=== PATIENT | female | born 1960 | race Caucasian/White ===

== ENCOUNTER 2023-01-13 19:54 | Inpatient (IN) ==
[2023-01-13] MEDS ORDERED: cefTRIAXone SODIUM 2,000 MG/70 ML BAG IV STA (20:17)
[2023-01-13] MEDS ORDERED: methylPREDNISolone 125 MG/2 ML VIAL IV STA (20:17)
[2023-01-13] MEDS ORDERED: SODIUM CHLORIDE 0.9% 1000ML 500 ML IV ONE (20:17)
[2023-01-13] MEDS ORDERED: ALBUT/IPRATROP 3MG/0.5MG NEB 3 ML VIAL NEB ONE (20:17)
[2023-01-13 20:25] LABS: Basophils # (auto) 0.08 K/uL (0-0.2); Basophils % (auto) 0.7 %; Eosinophils # (auto) 1.19 K/uL (0-0.50); Eosinophils % (auto) 11.2 %; Hematocrit (blood only) 47.9 % (37.0-47.0); Hemoglobin 15.9 g/dl (12.0-16.0); Immature Granulocytes # (auto) 0.04 K/uL (0.01-0.20); Immature Granulocytes % (auto) 0.4 %; Lymphocytes # (auto) 2.22 K/uL (1.2-3.4); Lymphocytes % (auto) 20.8 %; Mean Corpuscular Hemoglobin 31.6 pg (25.0-34.0); Mean Corpuscular Hgb Conc 33.2 g/dL (32.0-36.0); Mean Corpuscular Volume 95.2 fL (80.0-100.0); Mean Platelet Volume 10.5 fL (9.4-12.4); Monocytes % (auto) 11.2 %; Neutrophils # (auto) 5.94 K/uL (1.40-6.50); Neutrophils % (auto) 55.7 %; Platelet Count 115 K/uL (130-400); Red Blood Count 5.03 M/uL (4.20-5.40); White Blood Count 10.67 K/ul (4.8-10.8)
--- NOTE | 2023-01-13 20:26 | Emergency Department Note ---
Impression & Plan Respiratory distress, SOB (shortness of breath), Wheezing, Pneumonia, Elevated troponin ED Provider Note NAME: FLORA GONZALEZ AGE: 62 SEX: F : 1960 ARRIVES VIA: Walk-In INFORMANT: [Patient] ED PROVIDER(S): [Suraj Marlow MD] CHIEF COMPLAINT: Short of breath HISTORY OF PRESENT ILLNESS: The patient is a 62-year-old female who presents with increasing shortness of breath for maybe 1 week. Things have markedly worsened in the last few days. She has had to stop and catch her breath with minimal activity. She has had some cough that is productive, she has had some sweats and chills and may be a fever. She has tried other peoples inhalers and it helps a bit. She does not have any current diagnosis of lung disease, she has a history of smoking tobacco though. The patient has had no sick contacts. She states that in addition to the lung issue, she has had diarrhea for the last 24 hours, the diarrhea has not been bloody. No vomiting. The patient was in our ER this past October for difficulty breathing. She was diagnosed with a bronchitis at that time and was discharged on medication for symptoms. She improved. PMHx/PSHx: See Below SOCIAL HISTORY: See Below. PHYSICAL EXAM: GENERAL: Patient is in moderate respiratory distress. HEENT: No acute trauma, normocephalic atraumatic, mucous membranes moist, no nasal congestion. NECK: No stridor, no adenopathy, no meningismus, trachea is midline. LUNGS: Wheezing bilaterally with diminished breath sounds bilaterally, no crackl es. There is moderate respiratory distress and an increased respiratory rate. HEART: Heart tones are hard to auscultate because of the overriding lung sounds. Rhythm does seem regular. I cannot really assess for murmurs. ABDOMEN: Soft, nontender, bowel sounds positive, no peritonitis. EXTREMITIES: No cyanosis or edema, full range of motion of all the joints without pain or difficulty, no signs for acute trauma. NEUROLOGIC: Oriented x 3, no acute motor or sensory deficits, no focal weakness. SKIN: No rash, no jaundice, no diaphoresis. DIFFERENTIAL DIAGNOSIS: Bronchitis or pneumonia, viral illness, CHF, COPD or asthma, anemia, dysrhythmia, NC, PE, among others. EMERGENCY DEPARTMENT COURSE/PROCEDURES: Prior/Outside records reviewed: Recent ED note. ECG per my interpretation: Indication was shortness of breath. The ECG shows a normal sinus rhythm with a rate of 89. There is some significant baseline artifact. There is no obvious ST elevation. There is a possible old anterior infarct. No PVCs. The QTc is 401. Continuous Cardiac Monitoring per my interpretation: An order was placed for continuous cardiac monitoring. The monitor shows a rate of 95 with normal sinus rhythm. Critical Care Note: I have personally spent 47 minutes of critical care time in the direct management of this patient. This includes bedside care, interpretation of diagnostic studies, and testing, discussion with consultants, patient, and family members, and other required patient management activities. This 47 minutes is in excess of all separately billable procedures. MEDICAL DECISION MAKING: There is no leukocytosis or concerning anemia. Platelet count was slightly low at 115. No coagulopathy. There was an elevation to the creatinine at 1.73, this is consistent with some renal insufficiency/mild acute kidney injury. No electrolyte abnormality in need of emergent correction. Lactic acid level was not elevated making sepsis less likely. Alk phos was elevated, the remaining liver enzymes were unremarkable. ECG showed a normal sinus rhythm, no ST elevation. Cardiac enzyme testing x1 was slightly elevated. This troponin elevation may be from mismatch secondary to her hypoxia versus potentially some cardiac injury. Respiratory bio fire was completely negative. Chest film per my review does show some patchy bilateral infiltrates, worse on the left. No pneumothorax or CHF. On exam, the patient was in some moderate respiratory distress, she was not wheezing. She appeared short of breath. She was hypoxic upon arrival. The patient was given a 1 hour DuoNeb, IV ceftriaxone, IV Solu-Medrol and a 500 cc saline bolus. She feels markedly improved and is now breathing much easier. The patient is in need of a hospital stay. She will require further work-up and care. I did speak with the patient at length, I spoke with case management, the on-call hospitalist was consulted. DISPOSITION: Patient's presentation and findings warrant a hospital stay. Past Med/Surg History Medical History No known health problems Social History Smoking Status: Current every day smoker Tobacco Type: Cigarettes Preferred Language: Swiss Feels Safe at Home: Yes Allergies Allergies Allergy/AdvReac Type Severity Reaction Status Date / Time No Known Allergies Allergy Mild OTHER Unverified 07/12/19 09:42 Home Meds Home Medications Medication Instructions Recorded Confirmed No Known Home Medications 01/13/23 01/13/23 Results & Data (ED) Vital Signs Vital Signs - 24 hr 01/13/23 19:55 01/13/23 19:57 01/13/23 20:10 Temperature 36.3 C L Temperature Source Temporal Artery Scan Pulse Rate 95 H Respiratory Rate 26 H Respiratory Effort / Characteristics Short of Breath Tripoding Non-Labored Respiratory Depth Normal Respiratory Pattern Regular Blood Pressure 170/96 H Blood Pressure Mean 120 Pulse Oximetry 85 L 85 L Oxygen Delivery Method Room Air Room Air Nasal Cannula Room Air Oxygen Flow Rate Sepsis Recent Fever Within 48 Hours No Sepsis New/Unexplained Change in Mental Status No Sepsis Action Taken by Nursing No Action Required Oxygen Flow Rate - Titration 4 Pulse Oximetry Post Tiitration 93 01/13/23 19:57 01/13/23 19:57 01/13/23 19:58 Temperature Temperature Source Pulse Rate 95 H Respiratory Rate 24 Respiratory Effort / Characteristics Respiratory Depth Respiratory Pattern Blood Pressure Blood Pressure Mean Pulse Oximetry 93 93 92 Oxygen Delivery Method Nasal Cannula Nasal Cannula Nasal Cannula Oxygen Flow Rate 2 2 2 Sepsis Recent Fever Within 48 Hours Sepsis New/Unexplained Change in Mental Status Sepsis Action Taken by Nursing Oxygen Flow Rate - Titration Pulse Oximetry Post Tiitration 01/13/23 19:58 Temperature Temperature Source Pulse Rate 95 H Respiratory Rate 22 Respiratory Effort / Characteristics Respiratory Depth Respiratory Pattern Blood Pressure Blood Pressure Mean Pulse Oximetry 92 Oxygen Delivery Method Nasal Cannula Oxygen Flow Rate 2 Sepsis Recent Fever Within 48 Hours Sepsis New/Unexplained Change in Mental Status Sepsis Action Taken by Nursing Oxygen Flow Rate - Titration Pulse Oximetry Post Tiitration Home Medications Current Medication List: was personally reviewed by me Laboratory Data Attestation: I reviewed the patient's lab results. 01/13/23 20:03 01/13/23 20:03 Lab Results 01/13/23 01/13/23 01/13/23 Range/Units 20:03 20:03 20:03 WBC 10.67 (4.8-10.8) K/ul RBC 5.03 (4.20-5.40) M/uL Hgb 15.9 (12.0-16.0) g/dl Hct 47.9 H (37.0-47.0) % MCV 95.2 (80.0-100.0) fL MCH 31.6 (25.0-34.0) pg MCHC 33.2 (32.0-36.0) g/dL RDW Std Deviation 49.0 H (36.4-46.3) fL RDW Coeff of Ruthann 14.0 (11.5-14.5) % Plt Count 115 L (130-400) K/uL MPV 10.5 (9.4-12.4) fL Immature Gran % (Auto) 0.4 % Neut % (Auto) 55.7 % Lymph % (Auto) 20.8 % [place] % (Auto) 11.2 % Eos % (Auto) 11.2 % Baso % (Auto) 0.7 % Neut # (Auto) 5.94 (1.40-6.50) K/uL Lymph # (Auto) 2.22 (1.2-3.4) K/uL [place] # (Auto) 1.20 H (0.11-0.59) K/uL Eos # (Auto) 1.19 H (0-0.50) K/uL Baso # (Auto) 0.08 (0-0.2) K/uL Immature Gran # (Auto) 0.04 (0.01-0.20) K/uL PT 10.6 (9.0-12.0) Seconds INR 1.0 (0.9-1.1) APTT 26.3 (21.0-31.0) Seconds PTT Ratio 0.9 Sodium 139 (136-145) mmol/L Potassium 4.3 (3.5-5.1) mmol/L Chloride 104 (98-107) mmol/L Carbon Dioxide 27 (21-32) mmol/L Anion Gap 8 (3-11) BUN 34 H (6-23) mg/dl Creatinine 1.73 H (0.6-1.2) mg/dl Est Cr Clr Drug Dosing Not Reportable Est GFR ( Amer) 36.6 ml/min Est GFR (Non-Af Amer) 31.5 ml/min BUN/Creatinine Ratio 19.7 (10-20) Glucose 120 H (70-99(Fasting)) mg/dl Lactate (0.4-2.0) mmol/L Calcium 9.7 (8.6-10.3) mg/dl Magnesium 2.2 (1.7-2.4) mg/dl Total Bilirubin 0.4 (0.2-1.0) mg/dl AST 13 (13-39) U/L ALT 19 (7-52) U/L Alkaline Phosphatase 163 H (34-104) U/L Troponin I High Sens 18.6 H (0-14) pg/ml Total Protein 8.1 (6.0-8.3) gm/dl Albumin 4.3 (3.4-5.0) gm/dl Globulin 3.8 (2.5-4.0) gm/dl Albumin/Globulin Ratio 1.1 (0.9-2) Adenovirus (PCR) (NotDetected) B. pertussis DNA (PCR) (NotDetected) B.parapertussis DNA PCR (NotDetected) C. pneumoniae DNA (PCR) (NotDetected) Coronavirus OC43 (PCR) (NotDetected) Coronavirus HKU1 (PCR) (NotDetected) Coronavirus 229E (PCR) (NotDetected) SARS-CoV-2 (PCR) (NotDetected) Coronavirus NL63 (PCR) (NotDetected) Human Metapneumovir PCR (NotDetected) Influenza Type A (PCR) (NotDetected) Influenza Type B (PCR) (NotDetected) M. pneumoniae (PCR) (NotDetected) Parainfluenza 1 (PCR) (NotDetected) Parainfluenza 2 (PCR) (NotDetected) Parainfluenza 3 (PCR) (NotDetected) Parainfluenza 4 (PCR) (NotDetected) RSV (PCR) (NotDetected) Entero/Rhino (PCR) (NotDetected) 01/13/23 01/13/23 Range/Units 20:21 Unknown WBC (4.8-10.8) K/ul RBC (4.20-5.40) M/uL Hgb (12.0-16.0) g/dl Hct (37.0-47.0) % MCV (80.0-100.0) fL MCH (25.0-34.0) pg MCHC (32.0-36.0) g/dL RDW Std Deviation (36.4-46.3) fL RDW Coeff of Ruthann (11.5-14.5) % Plt Count (130-400) K/uL MPV (9.4-12.4) fL Immature Gran % (Auto) % Neut % (Auto) % Lymph % (Auto) % [place] % (Auto) % Eos % (Auto) % Baso % (Auto) % Neut # (Auto) (1.40-6.50) K/uL Lymph # (Auto) (1.2-3.4) K/uL [place] # (Auto) (0.11-0.59) K/uL Eos # (Auto) (0-0.50) K/uL Baso # (Auto) (0-0.2) K/uL Immature Gran # (Auto) (0.01-0.20) K/uL PT (9.0-12.0) Seconds INR (0.9-1.1) APTT (21.0-31.0) Seconds PTT Ratio Sodium (136-145) mmol/L Potassium (3.5-5.1) mmol/L Chloride (98-107) mmol/L Carbon Dioxide (21-32) mmol/L Anion Gap (3-11) BUN (6-23) mg/dl Creatinine (0.6-1.2) mg/dl Est Cr Clr Drug Dosing Est GFR ( Amer) ml/min Est GFR (Non-Af Amer) ml/min BUN/Creatinine Ratio (10-20) Glucose (70-99(Fasting)) mg/dl Lactate 1.1 (0.4-2.0) mmol/L Calcium (8.6-10.3) mg/dl Magnesium (1.7-2.4) mg/dl Total Bilirubin (0.2-1.0) mg/dl AST (13-39) U/L ALT (7-52) U/L Alkaline Phosphatase (34-104) U/L Troponin I High Sens (0-14) pg/ml Total Protein (6.0-8.3) gm/dl Albumin (3.4-5.0) gm/dl Globulin (2.5-4.0) gm/dl Albumin/Globulin Ratio (0.9-2) Adenovirus (PCR) Not Detected (NotDetected) B. pertussis DNA (PCR) Not Detected (NotDetected) B.parapertussis DNA PCR Not Detected (NotDetected) C. pneumoniae DNA (PCR) Not Detected (NotDetected) Coronavirus OC43 (PCR) Not Detected (NotDetected) Coronavirus HKU1 (PCR) Not Detected (NotDetected) Coronavirus 229E (PCR) Not Detected (NotDetected) SARS-CoV-2 (PCR) Not Detected (NotDetected) Coronavirus NL63 (PCR) Not Detected (NotDetected) Human Metapneumovir PCR Not Detected (NotDetected) Influenza Type A (PCR) Not Detected (NotDetected) Influenza Type B (PCR) Not Detected (NotDetected) M. pneumoniae (PCR) Not Detected (NotDetected) Parainfluenza 1 (PCR) Not Detected (NotDetected) Parainfluenza 2 (PCR) Not Detected (NotDetected) Parainfluenza 3 (PCR) Not Detected (NotDetected) Parainfluenza 4 (PCR) Not Detected (NotDetected) RSV (PCR) Not Detected (NotDetected) Entero/Rhino (PCR) Not Detected (NotDetected) Administered Medications Discontinued Medications Albuterol (Albut/Ipratrop 3mg/0.5mg Neb 3 Ml Vial) 12 ml NEB ONE ONE; Protocol Stop: 01/13/23 20:18 Last Admin: 01/13/23 20:28 Dose: 12 ml Documented By: LOTTIE Sodium Chloride (Nss 1000ml) 500 mls @ 999 mls/hr IV .Q31M ONE Stop: 01/13/23 20:47 Last Infusion: 01/13/23 21:13 Dose: 999 mls/hr Documented By: Admin: 01/13/23 20:40 Dose: 999 mls/hr Documented By: KRISTINA Ceftriaxone Sodium (Rocephin) 2,000 mg in 70 mls @ 140 mls/hr IV NOW STA Stop: 01/13/23 20:46 Last Infusion: 01/13/23 21:13 Dose: 140 mls/hr Documented By: Admin: 01/13/23 20:40 Dose: 140 mls/hr Documented By: KRISTINA Methylprednisolone (Methylprednisolone 125 Mg/2 Ml Vial) 125 mg IV NOW STA Stop: 01/13/23 20:18 Last Admin: 01/13/23 20:30 Dose: 125 mg Documented By: HJW Imaging Data My Impression: Chest x-ray: Per my review there is some patchy infiltrate to the lower lungs, especially on the left. No pneumothorax or CHF. Discharge Plan Visit Data Chief Complaint: Shortness of Breath/Dyspnea Stated Complaint: SOB, DIAREAHA, COUGH, CHILLS ED Provider: Suraj Marlow Discharge Problem: Respiratory distress, SOB (shortness of breath), Wheezing, Pneumonia, Elevated troponin Patient Disposition: Admitted As Inpatient Condition: Fair Forms Stand Alone [facility]: [facility] Prescriptions Prescriptions: No Action No Known Home Medications Referrals Referrals: PCP,NO [Primary Care Provider] -
[2023-01-13 20:38] LABS: Alanine Aminotransferase 19 U/L (7-52); Albumin Globulin Ratio 1.1 (0.9-2); Albumin Level 4.3 gm/dl (3.4-5.0); Alkaline Phosphatase 163 U/L (34-104); Anion Gap 8 (3-11); Aspartate Aminotransferase 13 U/L (13-39); BUN Creatinine Ratio 19.7 (10-20); Bilirubin,Total 0.4 mg/dl (0.2-1.0); Blood Urea Nitrogen 34 mg/dl (6-23); Calcium 9.7 mg/dl (8.6-10.3); Carbon Dioxide 27 mmol/L (21-32); Chloride 104 mmol/L (98-107); Est GFR (African American) 36.6 ml/min; Est GFR (Non-African American) 31.5 ml/min; Globulin 3.8 gm/dl (2.5-4.0); Glucose 120 mg/dl (70-99(Fasting)); Potassium 4.3 mmol/L (3.5-5.1); Sodium 139 mmol/L (136-145); Total Protein 8.1 gm/dl (6.0-8.3)
[2023-01-13 20:46] LABS: Troponin I High Sensitivity 18.6 pg/ml (0-14)
[2023-01-13 20:53] LABS: Partial Thromboplastin Ratio 0.9; Partial Thromboplastin Time 26.3 Seconds (21.0-31.0); Prothrombin Time 10.6 Seconds (9.0-12.0)
[2023-01-13 20:57] LABS: Magnesium 2.2 mg/dl (1.7-2.4)
[2023-01-13 21:44] LABS: Adenovirus PCR Not Detected (NotDetected); Bordetella parapertussis PCR Not Detected (NotDetected); Bordetella pertussis PCR Not Detected (NotDetected); Chlamydia pneumoniae PCR Not Detected (NotDetected); Coronavirus 229E PCR Not Detected (NotDetected); Coronavirus CoV-2 (COVID19)PCR Not Detected (NotDetected); Coronavirus HKU1 PCR Not Detected (NotDetected); Coronavirus NL63 PCR Not Detected (NotDetected); Coronavirus OC43PCR Not Detected (NotDetected); Human Metapneumovirus PCR Not Detected (NotDetected); Influenza A PCR Not Detected (NotDetected); Influenza B PCR Not Detected (NotDetected); Mycoplasma pneumoniae PCR Not Detected (NotDetected); Parainfluenza Virus 1 PCR Not Detected (NotDetected); Parainfluenza Virus 2 PCR Not Detected (NotDetected); Parainfluenza Virus 3 PCR Not Detected (NotDetected); Parainfluenza Virus 4 PCR Not Detected (NotDetected); Respiratory Syncytial VirusPCR Not Detected (NotDetected); Rhinovirus/Enterovirus PCR Not Detected (NotDetected)
--- NOTE | 2023-01-13 22:16 | History & Physical Report ---
Date of Service January 13, 2023 Assessment & Plan (1) SOB (shortness of breath): Plan: 62-year-old female with no significant past medical history comes because of shortness of breath and cough and found to be hypoxic in the ER. History of smoking Mostly COPD exacerbation Seems was in respiratory distress in the ER when she came in Was saturating low 80s on room air Currently on oxygen she is saturating okay Resp biofire negative Received Solu-Medrol nebs and Rocephin in the ER We will continue with IV Solu-Medrol, nebs [id number] and as needed IV Rocephin and doxycycline Will monitor response Needs to follow outpatient for PFTs Tobacco abuse States did not smoke for last 1 month Encourage smoking cessation Mild elevation of troponin Moderate demand ischemia We will follow serial exams. Diarrhea gentle fluids follow stool studies David cr 1.7 baseline 1.2 to 1.4? getting fluids f/u labs in am. DVT prophylaxis Lovenox Disposition med/telemetry Full code History of Present Illness Chief Complaint: Shortness of breath Primary Care Provider: NO PCP 62-year-old female with no significant past medical history comes because of shortness of breath and cough and found to be hypoxic in the ER. Patient states since last 1 week she is getting short of breath and coughing a lot bringing whitish phlegm. Sometimes coughing does not stop. Last 2 days got worse. Sweating a lot.. In the ER she was saturating in low 80s on room air. She states she did not smoke for last 1 month but prior to that smoked haldf pack a day for many years. The second week of October she was in the ER due to shortness of breath and cough and was treated for bronchitis with steroid and azithromycin and inhalers. Denies any chest pain. Last couple of days she is having a lot of diarrhea many episodes. Before bowel movement she has abdominal discomfort. Currently no abdominal pain. Normal bladder movements. No swelling the legs. Because of coughing she is having a lot of headaches. Poor appetite. Has some runny nose. No sore throat. Past medical history none as per patient Past surgical history none as per patient Social history smokes a pack a day for many years but states did not smoke for last 1 month. No alcohol use Family history grandfather had a CHF. Mother had ovarian cancer Allergies Allergy/AdvReac Type Severity Reaction Status Date / Time No Known Allergies Allergy Mild OTHER Unverified 07/12/19 09:42 Home Medications Medication Instructions Recorded Confirmed Type No Known Home Medications 01/13/23 01/13/23 History Past Med/Surg History Medical History No known health problems Social History Smoking Status: Current every day smoker Tobacco Type: Cigarettes Preferred Language: Welsh Feels Safe at Home: Yes Review of Systems Review of Systems: All systems reviewed & are unremarkable except as noted in HPI & below Physical Exam Physical Exam: General- Not in distress Head- atraumatic Eyes- PERRL. ENT- oropharynx clear Neck- supple, no JVD,. Lungs- clear to auscultation B/l wheezing and rhonchi Heart- regular rhythm; no murmur, no gallop. Abdomen- normal bowel sounds, soft, nontender, no distension Extremities- no pretibial edema, no erythema seen. Neuro- alert, oriented x 3; PERRL, EOMI; no facial palsy; no dysarthria; moves extremities Skin- warm & dry Results & Data Results & Data Vital Signs (Past 12 Hours) Vital Signs Temp Pulse Resp BP Pulse Ox O2 Del Method O2 Flow Rate 01/13/23 19:58 95 H 22 92 Nasal Cannula 2 01/13/23 19:58 92 Nasal Cannula 2 01/13/23 19:57 95 H 24 93 Nasal Cannula 2 01/13/23 19:57 93 Nasal Cannula 2 01/13/23 20:10 Room Air 01/13/23 19:57 85 L Room Air, Nasal Cannula 01/13/23 19:55 36.3 C L 95 H 26 H 170/96 H 85 L Room Air Diagnostic Findings Laboratory Results WBC 10.67 K/ul (4.8-10.8) 01/13/23 20:03 RBC 5.03 M/uL (4.20-5.40) 01/13/23 20:03 Hgb 15.9 g/dl (12.0-16.0) 01/13/23 20:03 Hct 47.9 % (37.0-47.0) H 01/13/23 20:03 MCV 95.2 fL (80.0-100.0) 01/13/23 20:03 MCH 31.6 pg (25.0-34.0) 01/13/23 20:03 MCHC 33.2 g/dL (32.0-36.0) 01/13/23 20:03 RDW Std Deviation 49.0 fL (36.4-46.3) H 01/13/23 20:03 RDW Coeff of Ruthann 14.0 % (11.5-14.5) 01/13/23 20:03 Plt Count 115 K/uL (130-400) L 01/13/23 20:03 MPV 10.5 fL (9.4-12.4) 01/13/23 20:03 Immature Gran % (Auto) 0.4 % 01/13/23 20:03 Neut % (Auto) 55.7 % 01/13/23 20:03 Lymph % (Auto) 20.8 % 01/13/23 20:03 [place] % (Auto) 11.2 % 01/13/23 20:03 Eos % (Auto) 11.2 % 01/13/23 20:03 Baso % (Auto) 0.7 % 01/13/23 20:03 Neut # (Auto) 5.94 K/uL (1.40-6.50) 01/13/23 20:03 Lymph # (Auto) 2.22 K/uL (1.2-3.4) 01/13/23 20:03 [place] # (Auto) 1.20 K/uL (0.11-0.59) H 01/13/23 20:03 Eos # (Auto) 1.19 K/uL (0-0.50) H 01/13/23 20:03 Baso # (Auto) 0.08 K/uL (0-0.2) 01/13/23 20:03 Immature Gran # (Auto) 0.04 K/uL (0.01-0.20) 01/13/23 20:03 PT 10.6 Seconds (9.0-12.0) 01/13/23 20:03 INR 1.0 (0.9-1.1) 01/13/23 20:03 APTT 26.3 Seconds (21.0-31.0) 01/13/23 20:03 PTT Ratio 0.9 01/13/23 20:03 Sodium 139 mmol/L (136-145) 01/13/23 20:03 Potassium 4.3 mmol/L (3.5-5.1) 01/13/23 20:03 Chloride 104 mmol/L (98-107) 01/13/23 20:03 Carbon Dioxide 27 mmol/L (21-32) 01/13/23 20:03 Anion Gap 8 (3-11) 01/13/23 20:03 BUN 34 mg/dl (6-23) H 01/13/23 20:03 Creatinine 1.73 mg/dl (0.6-1.2) H 01/13/23 20:03 Est Cr Clr Drug Dosing Not Reportable 01/13/23 20:03 Est GFR ( Amer) 36.6 ml/min 01/13/23 20:03 Est GFR (Non-Af Amer) 31.5 ml/min 01/13/23 20:03 BUN/Creatinine Ratio 19.7 (10-20) 01/13/23 20:03 Glucose 120 mg/dl (70-99(Fasting)) H 01/13/23 20:03 Lactate 1.1 mmol/L (0.4-2.0) 01/13/23 20:21 Calcium 9.7 mg/dl (8.6-10.3) 01/13/23 20:03 Magnesium 2.2 mg/dl (1.7-2.4) 01/13/23 20:03 Total Bilirubin 0.4 mg/dl (0.2-1.0) 01/13/23 20:03 AST 13 U/L (13-39) 01/13/23 20:03 ALT 19 U/L (7-52) 01/13/23 20:03 Alkaline Phosphatase 163 U/L (34-104) H 01/13/23 20:03 Troponin I High Sens 18.6 pg/ml (0-14) H 01/13/23 20:03 Total Protein 8.1 gm/dl (6.0-8.3) 01/13/23 20:03 Albumin 4.3 gm/dl (3.4-5.0) 01/13/23 20:03 Globulin 3.8 gm/dl (2.5-4.0) 01/13/23 20:03 Albumin/Globulin Ratio 1.1 (0.9-2) 01/13/23 20:03 Adenovirus (PCR) Not Detected (NotDetected) 01/13/23 Unknown B. pertussis DNA (PCR) Not Detected (NotDetected) 01/13/23 Unknown B.parapertussis DNA PCR Not Detected (NotDetected) 01/13/23 Unknown C. pneumoniae DNA (PCR) Not Detected (NotDetected) 01/13/23 Unknown Coronavirus OC43 (PCR) Not Detected (NotDetected) 01/13/23 Unknown Coronavirus HKU1 (PCR) Not Detected (NotDetected) 01/13/23 Unknown Coronavirus 229E (PCR) Not Detected (NotDetected) 01/13/23 Unknown SARS-CoV-2 (PCR) Not Detected (NotDetected) 01/13/23 Unknown Coronavirus NL63 (PCR) Not Detected (NotDetected) 01/13/23 Unknown Human Metapneumovir PCR Not Detected (NotDetected) 01/13/23 Unknown Influenza Type A (PCR) Not Detected (NotDetected) 01/13/23 Unknown Influenza Type B (PCR) Not Detected (NotDetected) 01/13/23 Unknown M. pneumoniae (PCR) Not Detected (NotDetected) 01/13/23 Unknown Parainfluenza 1 (PCR) Not Detected (NotDetected) 01/13/23 Unknown Parainfluenza 2 (PCR) Not Detected (NotDetected) 01/13/23 Unknown Parainfluenza 3 (PCR) Not Detected (NotDetected) 01/13/23 Unknown Parainfluenza 4 (PCR) Not Detected (NotDetected) 01/13/23 Unknown RSV (PCR) Not Detected (NotDetected) 01/13/23 Unknown Entero/Rhino (PCR) Not Detected (NotDetected) 01/13/23 Unknown Code Status & VTE Plan VTE Prophylaxis Plan VTE Prophylaxis will be ordered: Yes
[2023-01-14] MEDS ORDERED: ALBUT/IPRATROP 3MG/0.5MG NEB 3 ML VIAL NEB PRN (00:01)
[2023-01-14] MEDS ORDERED: NITROGLYCERIN SL 0.4 MG/TAB TAB SL PRN (00:01)
[2023-01-14] MEDS ORDERED: DOXYCYCLINE HYCLATE 100 MG CAP PO STA (00:06)
[2023-01-14] MEDS: SODIUM CHLORIDE 0.9% 1000ML 1,000 ML IV SCH ×2 (00:39→13:32)
[2023-01-14] MEDS: ENOXAPARIN INJ 40 MG/0.4 ML SYR SQ SCH (05:12)
[2023-01-14 05:42] LABS: Hematocrit (blood only) 42.3 % (37.0-47.0); Hemoglobin 13.8 g/dl (12.0-16.0); Mean Corpuscular Hgb Conc 32.6 g/dL (32.0-36.0); Mean Corpuscular Volume 95.1 fL (80.0-100.0); Mean Platelet Volume 10.7 fL (9.4-12.4); Platelet Count 111 K/uL (130-400); RDW Coefficient of Variation 13.7 % (11.5-14.5); RDW Standard Deviation 47.8 fL (36.4-46.3); Red Blood Count 4.45 M/uL (4.20-5.40); White Blood Count 7.99 K/ul (4.8-10.8)
[2023-01-14 05:44] LABS: BUN Creatinine Ratio 19.9 (10-20); Calcium 8.8 mg/dl (8.6-10.3); Creatinine Clr Calc Pharmacy 39.7 ml/min; Est GFR (African American) 46.8 ml/min; Est GFR (Non-African American) 40.4 ml/min; Magnesium 1.8 mg/dl (1.7-2.4); Potassium 4.8 mmol/L (3.5-5.1)
[2023-01-14 05:47] LABS: Basophils # (auto) 0.02 K/uL (0-0.2); Basophils % (auto) 0.3 %; Immature Granulocytes # (auto) 0.04 K/uL (0.01-0.20); Immature Granulocytes % (auto) 0.5 %; Lymphocytes # (auto) 0.56 K/uL (1.2-3.4); Monocytes # (auto) 0.11 K/uL (0.11-0.59); Monocytes % (auto) 1.4 %; Neutrophils # (auto) 7.26 K/uL (1.40-6.50); Neutrophils % (auto) 90.8 %
[2023-01-14 05:52] LABS: Troponin I High Sensitivity 13.7 pg/ml (0-14)
[2023-01-14] MEDS: ALBUT/IPRATROP 3MG/0.5MG NEB 3 ML VIAL NEB SCH ×4 (06:59→19:41)
--- NOTE | 2023-01-14 08:15 | XRay Report ---
XR chest 1V portable HISTORY: Chest pain, nonspecific COMPARISON: Chest 11/04/2022. FINDINGS: No pneumothorax. No pleural effusions. The heart is normal in size. Mild interstitial thick ening persists. Otherwise, no new focal lung consolidations to suggest a pneumonia. No evidence for p ulmonary edema. IMPRESSION: No significant change compared to the prior study. No acute process. ACT 112: Negative or not required by law. Electronically signed by: Pernell Dia M.D. 01/14/2023 8:13 AM
[2023-01-14] MEDS: DOXYCYCLINE HYCLATE 100 MG CAP PO SCH ×2 (08:53→20:24)
[2023-01-14] MEDS: methylPREDNISolone 40 MG in SYRINGE 0 ML IV SCH ×3 (09:18→20:24)
[2023-01-14] MEDS: ACETAMINOPHEN 325 MG TAB PO PRN (11:48)
--- NOTE | 2023-01-14 16:48 | Hospitalist Progress Note ---
Date of Service January 14, 2023 Assessment & Plan (1) SOB (shortness of breath): Plan: 62-year-old female with no significant past medical history comes because of shortness of breath and cough and found to be hypoxic in the ER. History of smoking COPD exacerbation with acute hypoxic respiratory failure Seems was in respiratory distress in the ER when she came in Was saturating low 80s on room air Currently on oxygen she is saturating okay Resp biofire negative Received Solu-Medrol nebs and Rocephin in the ER We will continue with IV Solu-Medrol, nebs [id number] and as needed IV Rocephin and doxycycline Has been feeling better since admission and still has a cough and shortness of breath We will continue current management Tobacco abuse States did not smoke for last 1 month Encourage smoking cessation No signs of withdrawal Mild elevation of troponin Moderate demand ischemia Serial troponins and negative for any ACS Diarrhea gentle fluids follow stool studies David cr 1.7 baseline 1.2 to 1.4? getting fluids f/u labs in am. DVT prophylaxis Lovenox Disposition med/telemetry Full code Admission and Anticipated Discharge Date Admission Date: January 13, 2023 Subjective 01/14/2023 The patient was seen and examined in medical telemetry unit She has been complaining of increasing cough with minimal phlegm and shortness of breath No fever and no chills Feeling a little bit better since admission Review of Systems Review of Systems: All systems reviewed and are unremarkable except as noted below Respiratory: Mild to moderate shortness of breath at rest with cough Physical Exam Physical Exam: Sitting on bed with shortness of breath and cough Constitutional: + ill appearing and average body habitus Eyes: PERRL, conjunctivae normal, anicteric sclerae ENMT: external ear and nose normal, oropharynx normal Neck: trachea midline, no thyromegaly Respiratory: + respiratory distress (Mild to moderate respiratory distress) Auscultation: + diminished lung sounds, + crackles (Coarse crackles bilaterally) and + wheezes Cardiovascular: Rate/Rhythm: regular rate and regular rhythm; not tachycardic Heart Sounds: normal S1 and normal S2; no murmur Extremities: no edema Gastrointestinal (Abdomen): Inspection/Auscultation: normal bowel sounds; abdomen not distended Percussion/Palpation: abdomen soft; abdomen nontender Musculoskeletal: No acute arthritis involving any joint Neurologic: normal touch/pain/proprioception and moves all extremities; no focal motor deficits Psychiatric: A+Ox3, euthymic affect Lymphatic: no cervical or axillary lymphadenopathy Results & Data Results & Data Vital Signs (Past 12 Hours) Vital Signs Temp Pulse Pulse Pulse Resp BP Pulse Ox 01/14/23 14:16 90 01/14/23 14:10 86 01/14/23 14:34 88 18 93 01/14/23 14:07 01/14/23 14:07 36.7 C 94 H 20 143/81 H 92 01/14/23 10:54 82 16 97 01/14/23 10:01 81 18 123/76 97 01/14/23 09:11 77 18 131/78 95 01/14/23 07:13 88 20 122/73 88 L 01/14/23 06:59 81 16 97 01/14/23 06:00 75 20 133/69 95 O2 Del Method O2 Flow Rate 01/14/23 14:16 01/14/23 14:10 01/14/23 14:34 Nasal Cannula 2 01/14/23 14:07 Nasal Cannula 2 01/14/23 14:07 Nasal Cannula 2 01/14/23 10:54 Nasal Cannula 2 01/14/23 10:01 Room Air 01/14/23 09:11 Room Air 01/14/23 07:13 Room Air 01/14/23 06:59 Nasal Cannula 2 01/14/23 06:00 Nasal Cannula 2 Laboratory Results Home Medications Medication Instructions Recorded Confirmed No Known Home Medications 01/13/23 01/13/23 Medications Administered Current Inpatient Medications Acetaminophen (Acetaminophen 325 Mg Tab) 650 mg PO Q4H PRN PRN Reason: Pain or Fever Stop: 02/13/23 00:00 Last Admin: 01/14/23 11:48 Dose: 650 mg Albuterol (Albut/Ipratrop 3mg/0.5mg Neb 3 Ml Vial) 3 ml NEB Q4H PRN; Protocol PRN Reason: Shortness Of Breath Or Wheezing Stop: 02/13/23 00:00 Albuterol (Albut/Ipratrop 3mg/0.5mg Neb 3 Ml Vial) 3 ml NEB QIDR [facility]; Protocol Stop: 02/13/23 06:59 Last Admin: 01/14/23 14:32 Dose: 3 ml Doxycycline Hyclate (Doxycycline Hyclate 100 Mg Cap) 100 mg PO BID [facility] Stop: 01/21/23 08:59 Last Admin: 01/14/23 08:53 Dose: 100 mg Enoxaparin Sodium (Enoxaparin Inj 40 Mg/0.4 Ml Syr) 40 mg SQ Q24H [facility] Stop: 02/13/23 05:59 Last Admin: 01/14/23 05:12 Dose: Not Given Sodium Chloride (Nss 1000ml) 1,000 mls @ 80 mls/hr IV .[id number] [facility] Stop: 01/15/23 01:00 Last Infusion: 01/14/23 14:29 Dose: 80 mls/hr Ceftriaxone Sodium 2,000 mg/ (Dextrose) 70 mls @ 100 mls/hr IV Q24H [facility]; Protocol Stop: 01/21/23 19:59 Methylprednisolone 40 mg/ (Syringe) 0.64 mls @ 1.5 mls/min IV TID [facility] Stop: 02/13/23 08:59 Last Admin: 01/14/23 14:41 Dose: 1.5 mls/min Nitroglycerin (Nitroglycerin Sl 0.4 Mg/Tab Tab) 0.4 mg SL Q5M PRN PRN Reason: Chest Pain Stop: 02/13/23 00:00
[2023-01-14] MEDS: cefTRIAXone SODIUM 2,000 MG in DEXTROSE 5% 50 ML IV SCH (20:29)
[2023-01-15] MEDS: ENOXAPARIN INJ 40 MG/0.4 ML SYR SQ SCH (06:14)
[2023-01-15] MEDS: ALBUT/IPRATROP 3MG/0.5MG NEB 3 ML VIAL NEB SCH ×4 (07:20→19:43)
[2023-01-15 07:57] LABS: Basophils # (auto) 0.04 K/uL (0-0.2); Basophils % (auto) 0.3 %; Immature Granulocytes # (auto) 0.49 K/uL (0.01-0.20); Immature Granulocytes % (auto) 3.3 %; Lymphocytes % (auto) 12.1 %; Mean Corpuscular Hgb Conc 32.5 g/dL (32.0-36.0); Mean Corpuscular Volume 95.5 fL (80.0-100.0); Mean Platelet Volume 10.3 fL (9.4-12.4); Monocytes # (auto) 0.84 K/uL (0.11-0.59); Monocytes % (auto) 5.7 %; Neutrophils # (auto) 11.69 K/uL (1.40-6.50); Neutrophils % (auto) 78.6 %; Platelet Count 143 K/uL (130-400); RDW Standard Deviation 48.8 fL (36.4-46.3); Red Blood Count 4.19 M/uL (4.20-5.40); White Blood Count 14.86 K/ul (4.8-10.8)
[2023-01-15] MEDS: methylPREDNISolone 40 MG in SYRINGE 0 ML IV SCH ×3 (08:06→20:08)
[2023-01-15 08:17] LABS: BUN Creatinine Ratio 20.3 (10-20); Calcium 9.1 mg/dl (8.6-10.3); Creatinine Clr Calc Pharmacy 39.2 ml/min; Est GFR (Non-African American) 39.7 ml/min; Potassium 4.8 mmol/L (3.5-5.1)
--- NOTE | 2023-01-15 09:21 | Electrocardiogram Report ---
Test Reason : Blood Pressure : / mmHG Vent. Rate : 089 BPM Atrial Rate : 089 BPM P-R Int : 128 ms QRS Dur : 070 ms QT Int : 330 ms P-R-T Axes : 079 060 070 degrees QTc Int : 401 ms Normal sinus rhythm Possible Left atrial enlargement Anteroseptal infarct (cited on or before 13-JAN-2023) Abnormal ECG When compared with ECG of 04-NOV-2022 20:02, No significant change was found Confirmed by Librado Lopez ([id number]) on 01/15/2023 9:20:40 AM Referred By: REFERRED SELF Confirmed By:Librado Lopez
[2023-01-15] MEDS: DOXYCYCLINE HYCLATE 100 MG CAP PO SCH ×2 (10:12→20:08)
[2023-01-15] MEDS: ACETAMINOPHEN 325 MG TAB PO PRN (14:44)
--- NOTE | 2023-01-15 16:44 | Hospitalist Progress Note ---
Date of Service January 15, 2023 Assessment & Plan (1) SOB (shortness of breath): Plan: 62-year-old female with no significant past medical history comes because of shortness of breath and cough and found to be hypoxic in the ER. History of smoking COPD exacerbation with acute hypoxic respiratory failure Seems was in respiratory distress in the ER when she came in Was saturating low 80s on room air Currently on oxygen she is saturating okay Resp biofire negative Received Solu-Medrol nebs and Rocephin in the ER We will continue with IV Solu-Medrol, nebs [id number] and as needed IV Rocephin and doxycycline Has been feeling better since admission and still has a cough and shortness of breath Clinically much better with decreasing cough, shortness of breath and wheezing We will continue current antibiotic and nebulized bronchodilator Likely discharge tomorrow if further improvement Tobacco abuse States did not smoke for last 1 month Encourage smoking cessation No signs of withdrawal Mild elevation of troponin Moderate demand ischemia Serial troponins and negative for any ACS Diarrhea gentle fluids follow stool studies David cr 1.7 baseline 1.2 to 1.4? getting fluids f/u labs in am.-Creatinine slightly worse at 1.43 Advised to drink more fluid We will monitor in a.m. DVT prophylaxis Lovenox Disposition med/telemetry Full code Admission and Anticipated Discharge Date Admission Date: January 13, 2023 Subjective 01/14/2023 The patient was seen and examined in medical telemetry unit She has been complaining of increasing cough with minimal phlegm and shortness of breath No fever and no chills Feeling a little bit better since admission 01/15/2023 The patient was seen and examined in the medical telemetry unit She has been feeling much better today Decreasing shortness of breath, cough and wheezing Denies any fever and or chills Review of Systems Review of Systems: All systems reviewed and are unremarkable except as noted below Respiratory: Mild to moderate shortness of breath at rest with cough Physical Exam Physical Exam: Sitting on bed with shortness of breath and cough Constitutional: + ill appearing and average body habitus Eyes: PERRL, conjunctivae normal, anicteric sclerae ENMT: external ear and nose normal, oropharynx normal Neck: trachea midline, no thyromegaly Respiratory: + respiratory distress (Mild to moderate respiratory distress) Auscultation: + diminished lung sounds, + crackles (Coarse crackles bilaterally) and + wheezes Cardiovascular: Rate/Rhythm: regular rate and regular rhythm; not tachycardic Heart Sounds: normal S1 and normal S2; no murmur Extremities: no edema Gastrointestinal (Abdomen): Inspection/Auscultation: normal bowel sounds; abdomen not distended Percussion/Palpation: abdomen soft; abdomen nontender Musculoskeletal: No acute arthritis involving any joint Neurologic: normal touch/pain/proprioception and moves all extremities; no focal motor deficits Psychiatric: A+Ox3, euthymic affect Lymphatic: no cervical or axillary lymphadenopathy Results & Data Results & Data Vital Signs (Past 12 Hours) Vital Signs Temp Pulse Pulse Resp BP Pulse Ox O2 Del Method 01/15/23 15:00 36.6 C 71 18 164/91 H 93 Room Air 01/15/23 12:00 77 01/15/23 14:55 81 20 96 Nasal Cannula 01/15/23 13:34 94 Nasal Cannula 01/15/23 11:12 36.5 C 75 20 175/83 H 97 Nasal Cannula 01/15/23 10:47 83 18 94 Nasal Cannula 01/15/23 07:28 36.5 C 60 20 168/83 H 96 Nasal Cannula 01/15/23 07:30 Nasal Cannula 01/15/23 07:22 78 20 97 Nasal Cannula 01/15/23 06:00 65 O2 Flow Rate 01/15/23 15:00 01/15/23 12:00 01/15/23 14:55 2 01/15/23 13:34 2 01/15/23 11:12 2 01/15/23 10:47 2 01/15/23 07:28 2 01/15/23 07:30 2 01/15/23 07:22 2 01/15/23 06:00 Laboratory Results Short CBC 01/15/23 Range/Units 07:32 WBC 14.86 H (4.8-10.8) K/ul Hgb 13.0 (12.0-16.0) g/dl Hct 40.0 (37.0-47.0) % Plt Count 143 (130-400) K/uL BMP 01/15/23 07:32 Sodium 140 Potassium 4.8 Chloride 108 H Carbon Dioxide 26 BUN 29 H Creatinine 1.43 H Glucose 110 H Calcium 9.1 Medications Administered Current Inpatient Medications Acetaminophen (Acetaminophen 325 Mg Tab) 650 mg PO Q4H PRN PRN Reason: Pain or Fever Stop: 02/13/23 00:00 Last Admin: 01/15/23 14:44 Dose: 650 mg Albuterol (Albut/Ipratrop 3mg/0.5mg Neb 3 Ml Vial) 3 ml NEB Q4H PRN; Protocol PRN Reason: Shortness Of Breath Or Wheezing Stop: 02/13/23 00:00 Albuterol (Albut/Ipratrop 3mg/0.5mg Neb 3 Ml Vial) 3 ml NEB QIDR [facility]; Protocol Stop: 02/13/23 06:59 Last Admin: 01/15/23 14:55 Dose: 3 ml Doxycycline Hyclate (Doxycycline Hyclate 100 Mg Cap) 100 mg PO BID [facility] Stop: 01/21/23 08:59 Last Admin: 01/15/23 10:12 Dose: 100 mg Enoxaparin Sodium (Enoxaparin Inj 40 Mg/0.4 Ml Syr) 40 mg SQ Q24H [facility] Stop: 02/13/23 05:59 Last Admin: 01/15/23 06:14 Dose: Not Given Ceftriaxone Sodium 2,000 mg/ (Dextrose) 70 mls @ 100 mls/hr IV Q24H [facility]; Protocol Stop: 01/21/23 19:59 Last Infusion: 01/14/23 21:35 Dose: Infused Methylprednisolone 40 mg/ (Syringe) 0.64 mls @ 1.5 mls/min IV TID [facility] Stop: 02/13/23 08:59 Last Admin: 01/15/23 13:26 Dose: 1.5 mls/min Nitroglycerin (Nitroglycerin Sl 0.4 Mg/Tab Tab) 0.4 mg SL Q5M PRN PRN Reason: Chest Pain Stop: 02/13/23 00:00
[2023-01-15] MEDS: cefTRIAXone SODIUM 2,000 MG in DEXTROSE 5% 50 ML IV SCH (20:09)
[2023-01-16] MEDS: ENOXAPARIN INJ 40 MG/0.4 ML SYR SQ SCH (06:15)
[2023-01-16 06:59] LABS: Calcium 9.1 mg/dl (8.6-10.3); Creatinine Clr Calc Pharmacy 37.8 ml/min; Est GFR (African American) 44.1 ml/min; Est GFR (Non-African American) 38.1 ml/min; Potassium 4.8 mmol/L (3.5-5.1)
[2023-01-16] MEDS: ALBUT/IPRATROP 3MG/0.5MG NEB 3 ML VIAL NEB SCH ×4 (07:35→19:43)
[2023-01-16] MEDS: methylPREDNISolone 40 MG in SYRINGE 0 ML IV SCH ×3 (07:53→20:02)
[2023-01-16] MEDS: DOXYCYCLINE HYCLATE 100 MG CAP PO SCH ×2 (07:53→20:02)
[2023-01-16] MEDS: amLODIPine BESYLATE 5 MG TAB PO SCH (09:40)
[2023-01-16 12:20] LABS: Adenovirus F 40/41 PCR Not Detected (NotDetected); Astrovirus PCR Not Detected (NotDetected); Campylobacter PCR Not Detected (NotDetected); Cryptosporidium PCR Not Detected (NotDetected); Cyclospora cayetanensis PCR Not Detected (NotDetected); Entamoeba histolytica PCR Not Detected (NotDetected); Enteroaggregative E.coli(EAEC) Not Detected (NotDetected); Enteropathogenic E.coli (EPEC) Not Detected (NotDetected); Enterotoxigenic E.coli (ETEC) Not Detected (NotDetected); Giardia lamblia PCR Not Detected (NotDetected); Norovirus GI/GII PCR Not Detected (NotDetected); Plesiomonas shigelloides PCR Not Detected (NotDetected); Rotavirus A PCR Not Detected (NotDetected); Salmonella PCR Not Detected (NotDetected); Sapovirus PCR Not Detected (NotDetected); Shiga-like Toxin E.coli (STEC) Not Detected (NotDetected); Shigella/Enteroinvasive E.coli Not Detected (NotDetected); Vibrio cholerae PCR Not Detected (NotDetected); Vibrio species PCR Not Detected (NotDetected); Yersinia enterocolitica PCR Not Detected (NotDetected)
--- NOTE | 2023-01-16 14:58 | Hospitalist Progress Note ---
Date of Service January 16, 2023 Assessment & Plan (1) SOB (shortness of breath): Plan: 62-year-old female with no significant past medical history comes because of shortness of breath and cough and found to be hypoxic in the ER. History of smoking COPD exacerbation with acute hypoxic respiratory failure Seems was in respiratory distress in the ER when she came in Was saturating low 80s on room air Currently on oxygen she is saturating okay Resp biofire negative Received Solu-Medrol nebs and Rocephin in the ER We will continue with IV Solu-Medrol, nebs [id number] and as needed IV Rocephin and doxycycline Has been feeling better since admission and still has a cough and shortness of breath Clinically much better with decreasing cough, shortness of breath and wheezing We will continue current antibiotic and nebulized bronchodilator Still desaturating on room air and has significant wheezing and shortness of breath with exertion No fever and or chills-we will continue current management High blood pressure Blood pressure noted to very high with systolic 195 No history of blood pressure Will start amlodipine 5 mg daily Tobacco abuse States did not smoke for last 1 month Encourage smoking cessation No signs of withdrawal Mild elevation of troponin Moderate demand ischemia Serial troponins and negative for any ACS Diarrhea gentle fluids follow stool studies David cr 1.7 baseline 1.2 to 1.4? getting fluids f/u labs in am.-Creatinine slightly worse at 1.43 Advised to drink more fluid We will monitor in a.m. DVT prophylaxis Lovenox Disposition med/telemetry Full code Advised to have more activity Likely discharge tomorrow Admission and Anticipated Discharge Date Admission Date: January 13, 2023 Subjective 01/14/2023 The patient was seen and examined in medical telemetry unit She has been complaining of increasing cough with minimal phlegm and shortness of breath No fever and no chills Feeling a little bit better since admission 01/15/2023 The patient was seen and examined in the medical telemetry unit She has been feeling much better today Decreasing shortness of breath, cough and wheezing Denies any fever and or chills 01/16/2023 The patient was seen and examined in medical telemetry unit She has been feeling a little better Still desaturates on room air and has wheezing and shortness of breath with exertion Review of Systems Review of Systems: All systems reviewed and are unremarkable except as noted below Respiratory: Mild to moderate shortness of breath at rest with cough Physical Exam Physical Exam: Sitting on bed with shortness of breath and cough Constitutional: + ill appearing and average body habitus Eyes: PERRL, conjunctivae normal, anicteric sclerae ENMT: external ear and nose normal, oropharynx normal Neck: trachea midline, no thyromegaly Respiratory: + respiratory distress (Mild to moderate respiratory distress) Auscultation: + diminished lung sounds, + crackles (Coarse crackles bilaterally) and + wheezes Cardiovascular: Rate/Rhythm: regular rate and regular rhythm; not tachycardic Heart Sounds: normal S1 and normal S2; no murmur Extremities: no edema Gastrointestinal (Abdomen): Inspection/Auscultation: normal bowel sounds; abdomen not distended Percussion/Palpation: abdomen soft; abdomen nontender Musculoskeletal: No acute arthritis involving any joint Neurologic: normal touch/pain/proprioception and moves all extremities; no focal motor deficits Psychiatric: A+Ox3, euthymic affect Lymphatic: no cervical or axillary lymphadenopathy Results & Data Results & Data Vital Signs (Past 12 Hours) Vital Signs Temp Pulse Pulse Resp BP BP Pulse Ox 01/16/23 14:51 79 01/16/23 14:04 58 L 20 86 L 01/16/23 11:41 36.8 C 75 19 163/98 H 98 01/16/23 11:15 79 16 95 01/16/23 09:19 01/16/23 07:44 36.6 C 70 20 195/98 H 180/95 H 94 01/16/23 07:39 56 L 01/16/23 07:35 89 16 97 01/16/23 03:32 36.7 C 77 20 171/96 H 96 O2 Del Method O2 Flow Rate 01/16/23 14:51 01/16/23 14:04 Room Air 01/16/23 11:41 Nasal Cannula 1 01/16/23 11:15 Nasal Cannula 1 01/16/23 09:19 Nasal Cannula 1 01/16/23 07:44 Nasal Cannula 1 01/16/23 07:39 01/16/23 07:35 Nasal Cannula 2 01/16/23 03:32 Nasal Cannula 2 Laboratory Results [facility] 01/16/23 05:44 Sodium 139 Potassium 4.8 Chloride 106 Carbon Dioxide 26 BUN 34 H Creatinine 1.48 H Glucose 121 H Calcium 9.1 Medications Administered Current Inpatient Medications Acetaminophen (Acetaminophen 325 Mg Tab) 650 mg PO Q4H PRN PRN Reason: Pain or Fever Stop: 02/13/23 00:00 Last Admin: 01/15/23 14:44 Dose: 650 mg Albuterol (Albut/Ipratrop 3mg/0.5mg Neb 3 Ml Vial) 3 ml NEB Q4H PRN; Protocol PRN Reason: Shortness Of Breath Or Wheezing Stop: 02/13/23 00:00 Albuterol (Albut/Ipratrop 3mg/0.5mg Neb 3 Ml Vial) 3 ml NEB QIDR [facility]; Protocol Stop: 02/13/23 06:59 Last Admin: 01/16/23 14:04 Dose: 3 ml Amlodipine Besylate (Amlodipine Besylate 5 Mg Tab) 5 mg PO QAM [facility] Stop: 02/15/23 08:59 Last Admin: 01/16/23 09:40 Dose: 5 mg Doxycycline Hyclate (Doxycycline Hyclate 100 Mg Cap) 100 mg PO BID [facility] Stop: 01/21/23 08:59 Last Admin: 01/16/23 07:53 Dose: 100 mg Enoxaparin Sodium (Enoxaparin Inj 40 Mg/0.4 Ml Syr) 40 mg SQ Q24H [facility] Stop: 02/13/23 05:59 Last Admin: 01/16/23 06:15 Dose: 40 mg Ceftriaxone Sodium 2,000 mg/ (Dextrose) 70 mls @ 100 mls/hr IV Q24H [facility]; Protocol Stop: 01/21/23 19:59 Last Infusion: 01/15/23 21:03 Dose: Infused Methylprednisolone 40 mg/ (Syringe) 0.64 mls @ 1.5 mls/min IV TID [facility] Stop: 02/13/23 08:59 Last Admin: 01/16/23 14:06 Dose: 1.5 mls/min Nitroglycerin (Nitroglycerin Sl 0.4 Mg/Tab Tab) 0.4 mg SL Q5M PRN PRN Reason: Chest Pain Stop: 02/13/23 00:00
[2023-01-16] MEDS: cefTRIAXone SODIUM 2,000 MG in DEXTROSE 5% 50 ML IV SCH (20:05)
[2023-01-17] MEDS: ENOXAPARIN INJ 40 MG/0.4 ML SYR SQ SCH (05:40)
[2023-01-17 06:59] LABS: ALC (manual) 4.01 K/uL (1.2-3.4); ANC (manual) 11.34 K/uL (1.4-6.5); Hematocrit (blood only) 42.7 % (37.0-47.0); Hemoglobin 14.3 g/dl (12.0-16.0); Lymphocytes # (manual) 4.01 K/uL (1.2-3.4); Lymphocytes % (manual) 23 %; Mean Corpuscular Hgb Conc 33.5 g/dL (32.0-36.0); Mean Corpuscular Volume 92.4 fL (80.0-100.0); Metamyelocytes # (manual) 0.87 K/uL (0-0); Metamyelocytes % (manual) 5 %; Monocytes # (manual) 0.87 K/uL (0.11-0.59); Monocytes % (manual) 5 %; Myelocytes # (manual) 0.35 K/uL (0-0); Myelocytes % (manual) 2 %; Neutrophils # (manual) 11.34 K/uL (1.40-6.50); Neutrophils % (manual) 65 %; Platelet Count 192 K/uL (130-400); RDW Coefficient of Variation 13.9 % (11.5-14.5); RDW Standard Deviation 46.8 fL (36.4-46.3); Red Blood Count 4.62 M/uL (4.20-5.40); White Blood Count 17.45 K/ul (4.8-10.8)
[2023-01-17 07:06] LABS: BUN Creatinine Ratio 29.2 (10-20); Calcium 9.2 mg/dl (8.6-10.3); Creatinine Clr Calc Pharmacy 43.1 ml/min; Est GFR (African American) 51.6 ml/min; Est GFR (Non-African American) 44.6 ml/min; Potassium 4.3 mmol/L (3.5-5.1)
[2023-01-17] MEDS: ALBUT/IPRATROP 3MG/0.5MG NEB 3 ML VIAL NEB SCH (07:32)
[2023-01-17] MEDS: DOXYCYCLINE HYCLATE 100 MG CAP PO SCH ×2 (07:34→20:16)
[2023-01-17] MEDS: amLODIPine BESYLATE 5 MG TAB PO SCH (07:34)
[2023-01-17] MEDS: methylPREDNISolone 40 MG in SYRINGE 0 ML IV SCH ×3 (07:36→20:16)
[2023-01-17] MEDS: cefTRIAXone SODIUM 2,000 MG in DEXTROSE 5% 50 ML IV SCH (20:16)
[2023-01-18] MEDS: ENOXAPARIN INJ 40 MG/0.4 ML SYR SQ SCH (05:33)
[2023-01-18] MEDS: amLODIPine BESYLATE 5 MG TAB PO SCH (08:16)
[2023-01-18] MEDS: DOXYCYCLINE HYCLATE 100 MG CAP PO SCH (08:16)
[2023-01-18] MEDS: methylPREDNISolone 40 MG in SYRINGE 0 ML IV SCH ×2 (08:16→14:56)
--- NOTE | 2023-01-18 14:42 | Hospitalist Progress Note ---
Date of Service January 17, 2023 Delayed bill for 01/17/2023 Assessment & Plan (1) SOB (shortness of breath): Plan: 62-year-old female with no significant past medical history comes because of shortness of breath and cough and found to be hypoxic in the ER. History of smoking COPD exacerbation with acute hypoxic respiratory failure Seems was in respiratory distress in the ER when she came in Was saturating low 80s on room air Currently on oxygen she is saturating okay Resp biofire negative Received Solu-Medrol nebs and Rocephin in the ER We will continue with IV Solu-Medrol, nebs [id number] and as needed IV Rocephin and doxycycline Has been feeling better since admission and still has a cough and shortness of breath Clinically much better with decreasing cough, shortness of breath and wheezing We will continue current antibiotic and nebulized bronchodilator Still desaturating on room air and has significant wheezing and shortness of breath with exertion No fever and or chills-we will continue current management Still has lots of cough and wheezing High blood pressure Blood pressure noted to very high with systolic 195 No history of blood pressure Will start amlodipine 5 mg daily Remains in the upper side Tobacco abuse States did not smoke for last 1 month Encourage smoking cessation No signs of withdrawal Mild elevation of troponin Moderate demand ischemia Serial troponins and negative for any ACS Diarrhea gentle fluids follow stool studies David cr 1.7 baseline 1.2 to 1.4? getting fluids f/u labs in am.-Creatinine slightly worse at 1.43 Advised to drink more fluid We will monitor in a.m. DVT prophylaxis Lovenox Disposition med/telemetry Full code Advised to have more activity Continue current management Admission and Anticipated Discharge Date Admission Date: January 13, 2023 Subjective 01/14/2023 The patient was seen and examined in medical telemetry unit She has been complaining of increasing cough with minimal phlegm and shortness of breath No fever and no chills Feeling a little bit better since admission 01/15/2023 The patient was seen and examined in the medical telemetry unit She has been feeling much better today Decreasing shortness of breath, cough and wheezing Denies any fever and or chills 01/16/2023 The patient was seen and examined in medical telemetry unit She has been feeling a little better Still desaturates on room air and has wheezing and shortness of breath with exertion 01/17/2023 Patient was seen and examined in medical telemetry unit Has not been doing any better since yesterday Cough, wheezing and shortness of breath Not ready to be discharged Review of Systems Review of Systems: All systems reviewed and are unremarkable except as noted below Respiratory: Mild to moderate shortness of breath at rest with cough Physical Exam Physical Exam: Sitting on bed with shortness of breath and cough Constitutional: + ill appearing and average body habitus Eyes: PERRL, conjunctivae normal, anicteric sclerae ENMT: external ear and nose normal, oropharynx normal Neck: trachea midline, no thyromegaly Respiratory: + respiratory distress (Mild to moderate respiratory distress) Auscultation: + diminished lung sounds, + crackles (Coarse crackles bilaterally) and + wheezes Cardiovascular: Rate/Rhythm: regular rate and regular rhythm; not tachycardic Heart Sounds: normal S1 and normal S2; no murmur Extremities: no edema Gastrointestinal (Abdomen): Inspection/Auscultation: normal bowel sounds; abdomen not distended Percussion/Palpation: abdomen soft; abdomen nontender Neurologic: normal touch/pain/proprioception and moves all extremities; no focal motor deficits Psychiatric: A+Ox3, euthymic affect Lymphatic: no cervical or axillary lymphadenopathy Results & Data Results & Data Vital Signs (Past 12 Hours) Vital Signs Temp Pulse Resp BP Pulse Ox O2 Del Method O2 Flow Rate 01/18/23 12:04 36.7 C 73 18 156/95 H 95 Nasal Cannula 1 01/18/23 08:00 Room Air 01/18/23 08:26 36.8 C 68 20 166/95 H 92 Room Air 01/18/23 04:31 36.8 C 76 18 95/65 L 92 Nasal Cannula 2
--- NOTE | 2023-01-18 14:47 | Hospitalist Progress Note ---
Date of Service January 18, 2023 Assessment & Plan (1) SOB (shortness of breath): Plan: 62-year-old female with no significant past medical history comes because of shortness of breath and cough and found to be hypoxic in the ER. History of smoking COPD exacerbation with acute hypoxic respiratory failure Seems was in respiratory distress in the ER when she came in Was saturating low 80s on room air Currently on oxygen she is saturating okay Resp biofire negative Received Solu-Medrol nebs and Rocephin in the ER We will continue with IV Solu-Medrol, nebs [id number] and as needed IV Rocephin and doxycycline Has been feeling better since admission and still has a cough and shortness of breath Clinically much better with decreasing cough, shortness of breath and wheezing We will continue current antibiotic and nebulized bronchodilator Still desaturating on room air and has significant wheezing and shortness of breath with exertion No fever and or chills-we will continue current management Still has lots of cough and wheezing Clinically little better today but he still has cough but shortness of breath is improved We will get to a 2 step O2 saturation test prior to discharge this afternoon High blood pressure Blood pressure noted to very high with systolic 195 No history of blood pressure Will start amlodipine 5 mg daily Remains in the upper side Blood pressure remains at around 156/95 Tobacco abuse States did not smoke for last 1 month Encourage smoking cessation No signs of withdrawal Strongly advised to quit smoking Mild elevation of troponin Moderate demand ischemia Serial troponins and negative for any ACS Diarrhea gentle fluids follow stool studies-negative for any infection David cr 1.7 baseline 1.2 to 1.4? getting fluids f/u labs in am.-Creatinine slightly worse at 1.43 Advised to drink more fluid We will monitor in a.m.-creatinine has improved a lot at 1.30 She was advised to drink more fluid at home DVT prophylaxis Lovenox Disposition med/telemetry Full code Advised to have more activity Continue current management Discharged home this afternoon Admission and Anticipated Discharge Date Admission Date: January 13, 2023 Subjective 01/14/2023 The patient was seen and examined in medical telemetry unit She has been complaining of increasing cough with minimal phlegm and shortness of breath No fever and no chills Feeling a little bit better since admission 01/15/2023 The patient was seen and examined in the medical telemetry unit She has been feeling much better today Decreasing shortness of breath, cough and wheezing Denies any fever and or chills 01/16/2023 The patient was seen and examined in medical telemetry unit She has been feeling a little better Still desaturates on room air and has wheezing and shortness of breath with exertion 01/17/2023 Patient was seen and examined in medical telemetry unit Has not been doing any better since yesterday Cough, wheezing and shortness of breath Not ready to be discharged 01/18/2023 The patient was seen and examined in medical telemetry unit She has been a little better today but he still has cough Denies any shortness of breath at rest but requiring 1 L to maintain saturation No fever and or chills She will have a 2 step O2 saturation test prior to discharge this afternoon Review of Systems Review of Systems: All systems reviewed and are unremarkable except as noted below Physical Exam Physical Exam: Sitting on bed with minimal shortness of breath and cough Constitutional: + ill appearing and average body habitus Eyes: PERRL, conjunctivae normal, anicteric sclerae ENMT: external ear and nose normal, oropharynx normal Neck: trachea midline, no thyromegaly Respiratory: + respiratory distress (Mild to moderate respiratory distress) Auscultation: + diminished lung sounds, + crackles (Coarse crackles bilaterally) and + wheezes Cardiovascular: Rate/Rhythm: regular rate and regular rhythm; not tachycardic Heart Sounds: normal S1 and normal S2; no murmur Extremities: no edema Gastrointestinal (Abdomen): Inspection/Auscultation: normal bowel sounds; abdomen not distended Percussion/Palpation: abdomen soft; abdomen nontender Musculoskeletal: No acute arthritis involving any joint Neurologic: normal touch/pain/proprioception and moves all extremities; no focal motor deficits Psychiatric: A+Ox3, euthymic affect Lymphatic: no cervical or axillary lymphadenopathy Results & Data Results & Data Vital Signs (Past 12 Hours) Vital Signs Temp Pulse Resp BP Pulse Ox O2 Del Method O2 Flow Rate 01/18/23 12:04 36.7 C 73 18 156/95 H 95 Nasal Cannula 1 01/18/23 08:00 Room Air 01/18/23 08:26 36.8 C 68 20 166/95 H 92 Room Air 01/18/23 04:31 36.8 C 76 18 95/65 L 92 Nasal Cannula 2 Medications Administered Current Inpatient Medications Acetaminophen (Acetaminophen 325 Mg Tab) 650 mg PO Q4H PRN PRN Reason: Pain or Fever Stop: 02/13/23 00:00 Last Admin: 01/15/23 14:44 Dose: 650 mg Albuterol (Albut/Ipratrop 3mg/0.5mg Neb 3 Ml Vial) 3 ml NEB Q4H PRN; Protocol PRN Reason: Shortness Of Breath Or Wheezing Stop: 02/13/23 00:00 Amlodipine Besylate (Amlodipine Besylate 5 Mg Tab) 5 mg PO QAM YARITZA Stop: 02/15/23 08:59 Last Admin: 01/18/23 08:16 Dose: 5 mg Doxycycline Hyclate (Doxycycline Hyclate 100 Mg Cap) 100 mg PO BID YARITZA Stop: 01/21/23 08:59 Last Admin: 01/18/23 08:16 Dose: 100 mg Enoxaparin Sodium (Enoxaparin Inj 40 Mg/0.4 Ml Syr) 40 mg SQ Q24H YARITZA Stop: 02/13/23 05:59 Last Admin: 01/18/23 05:33 Dose: Not Given Ceftriaxone Sodium 2,000 mg/ (Dextrose) 70 mls @ 100 mls/hr IV Q24H YRAITZA; Protocol Stop: 01/21/23 19:59 Last Infusion: 01/17/23 21:00 Dose: Infused Methylprednisolone 40 mg/ (Syringe) 0.64 mls @ 1.5 mls/min IV TID YARITZA Stop: 02/13/23 08:59 Last Admin: 01/18/23 08:16 Dose: 1.5 mls/min Nitroglycerin (Nitroglycerin Sl 0.4 Mg/Tab Tab) 0.4 mg SL Q5M PRN PRN Reason: Chest Pain Stop: 02/13/23 00:00
== END 2023-01-18 16:45 | disposition home or self-care (01) | DRG 190 ==
LOC: ED 19:54 → EDINP 21:43 → 2N 01-14 00:02

== ENCOUNTER 2023-10-07 08:40 | Inpatient (IN) ==
[2023-10-07] MEDS ORDERED: PANTOprazole 40 MG in SYRINGE 0 ML IV ONE (09:16)
[2023-10-07] MEDS: FAMOTIDINE 20MG IV PUSH 20 MG/5 ML SYR IV STA (09:27)
[2023-10-07] MEDS: MoRPHine SULFATE 4 MG/ML 1 ML CARP\\VIAL IV STA (09:27)
[2023-10-07] MEDS: SODIUM CHLORIDE 0.9% 1,000 ML IV ONE (09:27)
[2023-10-07] MEDS ORDERED: SODIUM CHLORIDE 0.9% 250 ML IV PRN (09:43)
[2023-10-07 09:45] LABS: Hematocrit (blood only) 13.9 % (37.0-47.0); Hemoglobin 4.2 g/dl (12.0-16.0); Mean Corpuscular Hemoglobin 36.5 pg (25.0-34.0); Mean Corpuscular Hgb Conc 30.2 g/dL (32.0-36.0); Mean Corpuscular Volume 120.9 fL (80.0-100.0); Mean Platelet Volume 10.4 fL (9.4-12.4); Nucleated RBC # (auto) 0.08 K/uL (0.00-0.12); Nucleated RBC % (auto) 0.3 %; Platelet Count 163 K/uL (130-400); RDW Coefficient of Variation 21.3 % (11.5-14.5); RDW Standard Deviation 91.4 fL (36.4-46.3); Red Blood Count 1.15 M/uL (4.20-5.40); White Blood Count 31.09 K/ul (4.8-10.8)
[2023-10-07 09:48] LABS: Anisocytosis Present; Basophils # (auto) 0.05 K/uL (0.00-0.20); Basophils % (auto) 0.2 %; Eosinophils # (auto) 0.91 K/uL (0.00-0.50); Eosinophils % (auto) 2.9 %; Immature Granulocytes # (auto) 0.97 K/uL (0.01-0.20); Immature Granulocytes % (auto) 3.1 %; Lymphocytes # (auto) 5.01 K/uL (1.20-3.40); Lymphocytes % (auto) 16.1 %; Monocytes # (auto) 0.35 K/uL (0.11-0.59); Monocytes % (auto) 1.1 %; Neutrophils % (auto) 76.6 %; Polychromasia 2+
[2023-10-07 09:51] LABS: INR 1.1 (0.9-1.1); Prothrombin Time 12.2 Seconds (9.0-12.0)
--- NOTE | 2023-10-07 09:51 | Emergency Department Note ---
Impression & Plan Abdominal pain, Anemia, COPD (chronic obstructive pulmonary disease), Hyperglycemia, Elevated troponin, SAVANAH (acute kidney injury) ED Provider Note ED Provider Note NAME: FLORA GONZALEZ AGE:63 SEX: Female : 1960 ARRIVES VIA: EMS INFORMANT: Patient ED PROVIDER(s): Nelly Steiner DO CHIEF COMPLAINT: Abdominal pain HPI: This is a 63-year-old female who presents emergency department complaining of abdominal pain. She states pain began early this morning. She initially pointed to her upper abdomen but then stated her "whole abdomen hurt". She states she is nauseated and had dry heaving but no other vomiting. She denies any diarrhea. She states she was initially passing gas but now does think she is passing any anymore. She reports subjective fevers and chills. She states the pain makes it hard for her to breathe. Patient states she was recently admitted for pneumonia and kidney stones. No other treatment prior to arrival. Difficulty obtaining history due to patient's agitation and recurrent complaints of abdominal pain. PAST MEDICAL HISTORY:See Below PAST SURGICAL HISTORY:See Below FAMILY HISTORY:See Below SOCIAL HISTORY:See Below HOME MEDICATIONS:See Below ALLERGIES:See Below VITALS:See Below PHYSICAL EXAMINATION: GENERAL: alert, unwell appearing, well nourished, moderate distress, agitated in the bed, restless and moving EYE EXAM: normal conjunctiva, PERRL and EOM's grossly intact OROPHARYNX: no exudate, no erythema, lips, buccal mucosa, and tongue normal and mucous membranes are dry NECK: supple, no nuchal rigidity, no adenopathy, non-tender LUNGS: Decreased bilateral to auscultation. Normal chest wall mechanics, no w/r/r HEART: no murmurs, S1 normal and S2 normal ABDOMEN: abdomen soft, generalized discomfort with palpation, normo-active bowel sounds, no masses, no rebound or guarding. BACK: Back is symmetrical on inspection and there is no deformity, no midline tenderness, no CVA tenderness. SKIN: no rashes, petechiae, orbruising; pallor noted UPPER EXTREMITIES: upper extremities are grossly normal. FROM, nml pulses b/l. LOWER EXTREMITIES: No pitting edema. FROM, nml pulses b/l. NEURO EXAM: Normal sensorium but agitated, cranial nerves II-XII grossly intact, normal speech, no facial droop,moving all extremities spontaneously, sitting up and then laying back in bed, moving during exam, would not cooperate for additional neuro testing due to complaints of pain Vital Signs: reviewed and remarkable Differential Diagnosis: Perforation, mesenteric ischemia, GI bleed, dissection, ACS, AAA, dysrhythmia, sepsis, cholecystitis, pancreatitis, colitis, bowel obstruction, volvulus, as well as others were considered MEDICAL DECISION MAKING: This is a 63-year-old female presents emergency department with agitation and distress complaining of abdominal pain. She appeared clinically dehydrated. She was afebrile and vital signs stable on arrival. Labs drawn and sent, IV established, EKG performed at bedside interpreted by me and patient monitored on telemetry. She was started on IV fluids and given IV morphine for pain in order to help facilitate imaging. While CT staff was awaiting creatinine as initial CT ordered with IV contrast and we were medicating the patient to help facilitate this process, I received a text from lab that her lactic acid was 10. In light of this new information I called CT to tell them we were not waiting on the creatinine but going to bring the patient right down. I then updated the nurse, and patient urgently transported down for CT imaging. While in CT I received additional updates from lab that the patient's WBC was 31, and hemoglobin of 4. I added a type and cross of 2 units, and attempted to contact the next of kin to discuss her current condition as well as possible need for blood transfusion. Patient's vital signs remained stable upon return from CT. Empiric IV zosyn added. I did alert the reading radiologist regarding the patient's presentation here as well as her lab abnormalities. Patient was started on IV fluids. IV Protonix bolus and drip added. CT read by radiology without acute abnormalities. Patient did have a bowel movement as well as episode of urination here simultaneously in the bed. Stool was noted to be brown with small bit of bright red blood out around it. We were unable to obtain a sample due to the mixed process. Patient continued to remain stable despite significant anemia and clinical dehydration. Patient was able to awaken at bedside and we discussed the need for urgent blood transfusion. Patient signed consent for bedside, nursing staff witnessed. [facility]. I was alerted during this conversation the patient had positive antibodies and additional send out testing would need to occur in [place] and that we would be unlikely to be able to obtain crossmatched blood for many hours possibly into tomorrow should the patient need it. We did inquire about the possibility of using O- and were told by blood bank staff that this could be problematic also and that several other forms would need to be followed if this was required. In discussion with the hospitalist, they will reach out to on-call hematology given concern for new anemia as well as report from blood bank. Consultation(s): 1045: Discussed with Dr. Marques, [facility] hospitalist team, for additional evaluation and mgmt. ER Treatment Provided: See below 0949: I attempted to contact the next of kin listed in EMR regarding the patient who was a friend, Josefina Jimenez. No answer and no availability to leave a voicemail. 1022: Patient signed consent at bedside for transfusion. Diagnostics Interpreted By Me: -ECG: Normal sinus at 90, normal axis, normal intervals, nonspecific ST/T wave changes -Cardiac Monitoring: An order was placed for continuous cardiac monitoring. The monitor shows a rate of 86 with normal sinus rhythm. -Laboratory studies: As stated above and show below. -Imaging studies: CT a/p - no sbo, no perf Triage Nursing Note Reviewed Prior/Outside Records Reviewed -recent discharge summary reviewed Critical Care: Critical care of 54 min performed to assess and manage high likelihood of life- threatening anemia and abdominal pain, involving labs and imaging performed with assessment to evaluate anemia and abdominal pain diagnosis with frequent reassessment. This time includes bedside time, treatment discussions with patient/family/consultants, documentation time and excludes procedure time. Past Med/Surg History Medical History (Updated 10/07/23 @ 15:43 by Nelly Steiner DO) COPD (chronic obstructive pulmonary disease) Essential hypertension RLS (restless legs syndrome) Pneumonia Surgical History (Updated 10/07/23 @ 14:24 by Jennifer Polanco PA-C) History of tonsillectomy Social History Smoking Status: Current some day smoker Tobacco Type: Cigarettes Second Hand Exposure: Yes; Do You Dip or Chew Tobacco: No; Hx Alcohol Use: No Hx Substance Use: Yes (medical MMJ pt) Last Used Substance: Unknown Preferred Language: Syriac Communication Ability: Effective Entry Driver Operator Required: No Beliefs That Will Affect Care: None Current Living Situation: Alone Feels Safe at Home: Yes Assistive Devices: None Allergies Allergies Allergy/AdvReac Type Severity Reaction Status Date / Time No Known Allergies Allergy Mild OTHER Unverified 07/12/19 09:42 Home Meds Home Medications Medication Instructions Recorded Confirmed omeprazole 20 mg capsule,delayed 20 mg PO DAILY 10/07/23 10/07/23 release Previous Rx's Medication Instructions Recorded albuterol sulfate 90 mcg/actuation 2 inh inhalation Q6H PRN shortness 01/18/23 aerosol inhaler of breath or wheezing #8.5 grams amlodipine 5 mg tablet (Norvasc) 5 mg PO QAM #30 tabs 01/18/23 fluticasone 250 mcg-salmeterol 50 1 inh inhalation BID #60 ea 01/18/23 mcg/dose blistr powdr for inhalation (Advair Diskus) Results & Data (ED) Vital Signs Vital Signs - 24 hr 10/07/23 08:51 10/07/23 08:51 10/07/23 08:51 Temperature 36.7 C Temperature Source Oral Pulse Rate 91 H 93 H Pulse Rate [Apical] 93 H Pulse Rate from SpO2 Sensor Respiratory Rate 20 20 21 Respiratory Effort / Characteristics Non-Labored Spontaneous Short of Breath Non-Labored Spontaneous Short of Breath Respiratory Depth Normal Respiratory Pattern Regular Regular Blood Pressure 166/87 H Blood Pressure [Right Arm] 166/87 H Blood Pressure Mean 113 Blood Pressure Mean [Right Arm] 113 Blood Pressure Position Lying Blood Pressure Position [Right Arm] Lying Pulse Oximetry 95 95 Oxygen Delivery Method Room Air Room Air Oxygen Flow Rate Sepsis Recent Fever Within 48 Hours No Sepsis New/Unexplained Change in Mental Status N/A Sepsis Action Taken by Nursing No Action Required 10/07/23 08:54 10/07/23 09:00 10/07/23 09:10 Temperature Temperature Source Pulse Rate 90 92 H 90 Pulse Rate [Apical] Pulse Rate from SpO2 Sensor Respiratory Rate 15 15 Respiratory Effort / Characteristics Respiratory Depth Respiratory Pattern Blood Pressure Blood Pressure [Right Arm] Blood Pressure Mean Blood Pressure Mean [Right Arm] Blood Pressure Position Blood Pressure Position [Right Arm] Pulse Oximetry Oxygen Delivery Method Oxygen Flow Rate Sepsis Recent Fever Within 48 Hours Sepsis New/Unexplained Change in Mental Status Sepsis Action Taken by Nursing 10/07/23 09:20 10/07/23 09:30 10/07/23 09:31 Temperature Temperature Source Pulse Rate 93 H 91 H 87 Pulse Rate [Apical] Pulse Rate from SpO2 Sensor 89 Respiratory Rate 18 18 Respiratory Effort / Characteristics Respiratory Depth Respiratory Pattern Blood Pressure Blood Pressure [Right Arm] Blood Pressure Mean Blood Pressure Mean [Right Arm] Blood Pressure Position Blood Pressure Position [Right Arm] Pulse Oximetry 94 Oxygen Delivery Method Oxygen Flow Rate Sepsis Recent Fever Within 48 Hours Sepsis New/Unexplained Change in Mental Status Sepsis Action Taken by Nursing 10/07/23 09:31 10/07/23 09:39 10/07/23 09:40 Temperature Temperature Source Pulse Rate 88 Pulse Rate [Apical] Pulse Rate from SpO2 Sensor 88 Respiratory Rate 17 Respiratory Effort / Characteristics Respiratory Depth Respiratory Pattern Blood Pressure 171/135 H Blood Pressure [Right Arm] Blood Pressure Mean 153 Blood Pressure Mean [Right Arm] Blood Pressure Position Blood Pressure Position [Right Arm] Pulse Oximetry 84 L 95 Oxygen Delivery Method Room Air Nasal Cannula Oxygen Flow Rate 3 Sepsis Recent Fever Within 48 Hours Sepsis New/Unexplained Change in Mental Status Sepsis Action Taken by Nursing 10/07/23 09:45 10/07/23 09:45 10/07/23 10:01 Temperature Temperature Source Pulse Rate 87 92 H Pulse Rate [Apical] Pulse Rate from SpO2 Sensor 88 92 H Respiratory Rate 32 H 28 H Respiratory Effort / Characteristics Respiratory Depth Respiratory Pattern Blood Pressure 164/88 H Blood Pressure [Right Arm] Blood Pressure Mean 147 Blood Pressure Mean [Right Arm] Blood Pressure Position Blood Pressure Position [Right Arm] Pulse Oximetry 97 99 Oxygen Delivery Method Oxygen Flow Rate Sepsis Recent Fever Within 48 Hours Sepsis New/Unexplained Change in Mental Status Sepsis Action Taken by Nursing 10/07/23 10:02 10/07/23 10:02 10/07/23 10:10 Temperature Temperature Source Pulse Rate 92 H 92 H Pulse Rate [Apical] Pulse Rate from SpO2 Sensor 93 H 92 H Respiratory Rate 28 H 27 H Respiratory Effort / Characteristics Respiratory Depth Respiratory Pattern Blood Pressure 167/89 H Blood Pressure [Right Arm] Blood Pressure Mean 138 Blood Pressure Mean [Right Arm] Blood Pressure Position Blood Pressure Position [Right Arm] Pulse Oximetry 96 100 Oxygen Delivery Method Nasal Cannula Oxygen Flow Rate 3 Sepsis Recent Fever Within 48 Hours Sepsis New/Unexplained Change in Mental Status Sepsis Action Taken by Nursing 10/07/23 10:15 10/07/23 10:15 10/07/23 10:20 Temperature Temperature Source Pulse Rate 92 H 93 H Pulse Rate [Apical] Pulse Rate from SpO2 Sensor 94 H 90 Respiratory Rate 27 H 26 H Respiratory Effort / Characteristics Respiratory Depth Respiratory Pattern Blood Pressure 156/81 H Blood Pressure [Right Arm] Blood Pressure Mean 121 Blood Pressure Mean [Right Arm] Blood Pressure Position Blood Pressure Position [Right Arm] Pulse Oximetry 99 100 Oxygen Delivery Method Nasal Cannula Nasal Cannula Oxygen Flow Rate 2 2 Sepsis Recent Fever Within 48 Hours Sepsis New/Unexplained Change in Mental Status Sepsis Action Taken by Nursing 10/07/23 10:30 10/07/23 10:30 10/07/23 10:40 Temperature Temperature Source Pulse Rate 92 H 92 H Pulse Rate [Apical] Pulse Rate from SpO2 Sensor 90 91 H Respiratory Rate 23 22 Respiratory Effort / Characteristics Respiratory Depth Respiratory Pattern Blood Pressure 142/75 H Blood Pressure [Right Arm] Blood Pressure Mean 98 Blood Pressure Mean [Right Arm] Blood Pressure Position Blood Pressure Position [Right Arm] Pulse Oximetry 99 100 Oxygen Delivery Method Nasal Cannula Oxygen Flow Rate 2 Sepsis Recent Fever Within 48 Hours Sepsis New/Unexplained Change in Mental Status Sepsis Action Taken by Nursing 10/07/23 10:45 10/07/23 10:45 10/07/23 10:50 Temperature Temperature Source Pulse Rate 92 H 94 H Pulse Rate [Apical] Pulse Rate from SpO2 Sensor Respiratory Rate 22 22 Respiratory Effort / Characteristics Respiratory Depth Respiratory Pattern Blood Pressure 130/70 Blood Pressure [Right Arm] Blood Pressure Mean 98 Blood Pressure Mean [Right Arm] Blood Pressure Position Blood Pressure Position [Right Arm] Pulse Oximetry Oxygen Delivery Method Oxygen Flow Rate Sepsis Recent Fever Within 48 Hours Sepsis New/Unexplained Change in Mental Status Sepsis Action Taken by Nursing 10/07/23 11:00 10/07/23 11:00 10/07/23 11:10 Temperature Temperature Source Pulse Rate 87 83 Pulse Rate [Apical] Pulse Rate from SpO2 Sensor Respiratory Rate 26 H 22 Respiratory Effort / Characteristics Respiratory Depth Respiratory Pattern Blood Pressure 116/71 Blood Pressure [Right Arm] Blood Pressure Mean 100 Blood Pressure Mean [Right Arm] Blood Pressure Position Blood Pressure Position [Right Arm] Pulse Oximetry Oxygen Delivery Method Oxygen Flow Rate Sepsis Recent Fever Within 48 Hours Sepsis New/Unexplained Change in Mental Status Sepsis Action Taken by Nursing 10/07/23 11:15 10/07/23 11:15 10/07/23 11:20 Temperature Temperature Source Pulse Rate 90 86 Pulse Rate [Apical] Pulse Rate from SpO2 Sensor Respiratory Rate 23 24 Respiratory Effort / Characteristics Respiratory Depth Respiratory Pattern Blood Pressure 119/66 Blood Pressure [Right Arm] Blood Pressure Mean 103 Blood Pressure Mean [Right Arm] Blood Pressure Position Blood Pressure Position [Right Arm] Pulse Oximetry Oxygen Delivery Method Oxygen Flow Rate Sepsis Recent Fever Within 48 Hours Sepsis New/Unexplained Change in Mental Status Sepsis Action Taken by Nursing Laboratory Data 10/07/23 11:35 10/07/23 09:01 Lab Results 10/07/23 10/07/23 10/07/23 Range/Units 09:01 09:05 09:23 WBC 31.09 H* (4.8-10.8) K/ul RBC 1.15 L (4.20-5.40) M/uL Hgb 4.2 L* (12.0-16.0) g/dl Hct 13.9 L* (37.0-47.0) % MCV 120.9 H (80.0-100.0) fL MCH 36.5 H (25.0-34.0) pg MCHC 30.2 L (32.0-36.0) g/dL RDW Std Deviation 91.4 H (36.4-46.3) fL RDW Coeff of Ruthann 21.3 H (11.5-14.5) % Plt Count 163 (130-400) K/uL MPV 10.4 (9.4-12.4) fL Immature Gran % (Auto) 3.1 % Neut % (Auto) 76.6 % Lymph % (Auto) 16.1 % Boyle % (Auto) 1.1 % Eos % (Auto) 2.9 % Baso % (Auto) 0.2 % Reticulocyte % (Auto) 19.77 H (0.50-2.00) % Neut # (Auto) 23.80 H (1.40-6.50) K/uL Lymph # (Auto) 5.01 H (1.20-3.40) K/uL Boyle # (Auto) 0.35 (0.11-0.59) K/uL Eos # (Auto) 0.91 H (0.00-0.50) K/uL Baso # (Auto) 0.05 (0.00-0.20) K/uL Reticulocyte # 0.230 H (0.020-0.100) 10^6/uL Immature Gran # (Auto) 0.97 H (0.01-0.20) K/uL Absolute Nucleated RBC 0.08 (0.00-0.12) K/uL Nucleated RBC % (auto) 0.3 % Polychromasia 2+ Anisocytosis Present Immature Retic Fraction 35.2 H (2.3-15.9) % Retic Hgb Content 32.6 (28.2-36.6) pg PT 12.2 H (9.0-12.0) Seconds INR 1.1 (0.9-1.1) Sodium 140 (136-145) mmol/L Potassium 3.9 (3.5-5.1) mmol/L Chloride 107 (98-107) mmol/L Carbon Dioxide 15 L (21-32) mmol/L Anion Gap 18 H (3-11) BUN 20 (6-23) mg/dl Creatinine 1.88 H (0.6-1.2) mg/dl Est Cr Clr Drug Dosing 31.4 ml/min Est GFR ( Amer) 32.8 ml/min Est GFR (Non-Af Amer) 28.3 ml/min BUN/Creatinine Ratio 10.6 (10-20) Glucose 302 H* (70-99(Fasting)) mg/dl Lactate 10.4 H* (0.4-2.0) mmol/L Calcium 8.3 L (8.6-10.3) mg/dl Magnesium 2.0 (1.7-2.4) mg/dl Iron 284 H (35-150) mcg/dl TIBC TNP Unsaturated IBC < 55 L (155-355) mcg/dl Transferrin % Sat TNP Ferritin > 7500.0 H (8-388) ng/ml Total Bilirubin 3.6 H (0.2-1.0) mg/dl AST 25 (13-39) U/L ALT 7 (7-52) U/L Alkaline Phosphatase 92 (34-104) U/L Lactate Dehydrogenase 579 H (86-244) U/L Troponin I High Sens 18.1 H (0-14) pg/ml Total Protein 6.1 (6.0-8.3) gm/dl Albumin 3.4 (3.4-5.0) gm/dl Globulin 2.7 (2.5-4.0) gm/dl Albumin/Globulin Ratio 1.3 (0.9-2) Lipase 15 (11-82) U/L Vitamin B12 480 (180-914) pg/ml Folate 10.99 (>5.38) ng/ml Urine Color Urine Appearance (Clear) Urine pH Ur Specific [place] (1.000-1.030) Urine Protein Urine Glucose (UA) Urine Ketones Urine Blood Urine Nitrite Urine Bilirubin Urine Urobilinogen Ur Leukocyte Esterase Urine RBC (0-2) /hpf Urine WBC (0-5) /hpf Ur Epithelial Cells (0-2) /hpf Urine Bacteria (None Seen) Blood Type A Positive Blood Type Recheck Antibody Screen POSITIVE A Antibody ID Comment Cancelled Direct Antiglob Test Positive A (Negative) MANUELA (IgG-AHG) 3+ A (Negative) MANUELA, Polyspecific 3+ A (Negative) MANUELA C3b, C3d 5 Min 2+ A (Negative) Crossmatch See Detail 10/07/23 10/07/23 10/07/23 Range/Units 10:23 11:02 11:07 WBC (4.8-10.8) K/ul RBC (4.20-5.40) M/uL Hgb (12.0-16.0) g/dl Hct (37.0-47.0) % MCV (80.0-100.0) fL MCH (25.0-34.0) pg MCHC (32.0-36.0) g/dL RDW Std Deviation (36.4-46.3) fL RDW Coeff of Ruthann (11.5-14.5) % Plt Count (130-400) K/uL MPV (9.4-12.4) fL Immature Gran % (Auto) % Neut % (Auto) % Lymph % (Auto) % Boyle % (Auto) % Eos % (Auto) % Baso % (Auto) % Reticulocyte % (Auto) (0.50-2.00) % Neut # (Auto) (1.40-6.50) K/uL Lymph # (Auto) (1.20-3.40) K/uL Boyle # (Auto) (0.11-0.59) K/uL Eos # (Auto) (0.00-0.50) K/uL Baso # (Auto) (0.00-0.20) K/uL Reticulocyte # (0.020-0.100) 10^6/uL Immature Gran # (Auto) (0.01-0.20) K/uL Absolute Nucleated RBC (0.00-0.12) K/uL Nucleated RBC % (auto) % Polychromasia Anisocytosis Immature Retic Fraction (2.3-15.9) % Retic Hgb Content (28.2-36.6) pg PT (9.0-12.0) Seconds INR (0.9-1.1) Sodium (136-145) mmol/L Potassium (3.5-5.1) mmol/L Chloride (98-107) mmol/L Carbon Dioxide (21-32) mmol/L Anion Gap (3-11) BUN (6-23) mg/dl Creatinine (0.6-1.2) mg/dl Est Cr Clr Drug Dosing ml/min Est GFR ( Amer) ml/min Est GFR (Non-Af Amer) ml/min BUN/Creatinine Ratio (10-20) Glucose (70-99(Fasting)) mg/dl Lactate 6.2 H* (0.4-2.0) mmol/L Calcium (8.6-10.3) mg/dl Magnesium (1.7-2.4) mg/dl Iron (35-150) mcg/dl TIBC Unsaturated IBC (155-355) mcg/dl Transferrin % Sat Ferritin (8-388) ng/ml Total Bilirubin (0.2-1.0) mg/dl AST (13-39) U/L ALT (7-52) U/L Alkaline Phosphatase (34-104) U/L Lactate Dehydrogenase (86-244) U/L Troponin I High Sens (0-14) pg/ml Total Protein (6.0-8.3) gm/dl Albumin (3.4-5.0) gm/dl Globulin (2.5-4.0) gm/dl Albumin/Globulin Ratio (0.9-2) Lipase (11-82) U/L Vitamin B12 (180-914) pg/ml Folate (>5.38) ng/ml Urine Color See Comment Urine Appearance Slightly Cloudy (Clear) Urine pH Not Reportable Ur Specific [place] 1.031 H (1.000-1.030) Urine Protein Not Reportable Urine Glucose (UA) Not Reportable Urine Ketones Not Reportable Urine Blood Not Reportable Urine Nitrite Not Reportable Urine Bilirubin Not Reportable Urine Urobilinogen Not Reportable Ur Leukocyte Esterase Not Reportable Urine RBC 0-2 (0-2) /hpf Urine WBC 0-5 (0-5) /hpf Ur Epithelial Cells 0-2 (0-2) /hpf Urine Bacteria None Seen (None Seen) Blood Type Blood Type Recheck A Positive Antibody Screen Antibody ID Comment Direct Antiglob Test (Negative) MANUELA (IgG-AHG) (Negative) MANUELA, Polyspecific (Negative) MANUELA C3b, C3d 5 Min (Negative) Crossmatch Administered Medications Folic Acid (Folic Acid 1 Mg Tab) 1 mg PO QAM YARITZA Stop: 11/06/23 12:14 Last Admin: 10/07/23 12:57 Dose: 1 mg Documented By: SHRUTI Pantoprazole Sodium 40 mg/ (Dextrose) 100 mls @ 20 mls/hr IV Q5H YARITZA Stop: 11/06/23 10:44 Last Admin: 10/07/23 11:54 Dose: 8 mg/hr, 20 mls/hr Documented By: ANNETTA Lactated Ringer's (Lr) 1,000 mls @ 100 mls/hr IV .Q10H YARITZA Stop: 11/06/23 11:29 Last Admin: 10/07/23 11:38 Dose: 100 mls/hr Documented By: ANNETTA Methylprednisolone 1,000 mg/ (Sodium Chloride) 266 mls @ 266 mls/hr IV Q24H YARITZA Stop: 11/06/23 12:59 Last Infusion: 10/07/23 14:42 Dose: Infused Documented By: Admin: 10/07/23 13:30 Dose: 266 mls/hr Documented By: ANNETTA Immune Globulin (Octagam 10%) 100 mls @ 43.62 mls/hr IV 1400 YARITZA; Protocol Stop: 10/07/23 16:18 Last Admin: 10/07/23 15:14 Dose: 1 mg/kg/min, 43.6 mls/hr Documented By: SHANEL Discontinued Medications Sodium Chloride (Nss) 1,000 mls @ 999 mls/hr IV .Q1H1M ONE Stop: 10/07/23 10:16 Last Infusion: 10/07/23 10:43 Dose: Infused Documented By: Admin: 10/07/23 09:27 Dose: 999 mls/hr Documented By: ANNETTA Famotidine (Pepcid 20mg Iv Push) 20 mg in 5 mls @ 2.5 mls/min IV NOW STA Stop: 10/07/23 09:17 Last Admin: 10/07/23 09:27 Dose: 2.5 mls/min Documented By: ANNETTA Piperacillin Sod/Tazobactam Sod (Zosyn) 4.5 gm in 100 mls @ 200 mls/hr IV NOW ONE Stop: 10/07/23 10:15 Last Infusion: 10/07/23 10:55 Dose: Infused Documented By: Admin: 10/07/23 10:20 Dose: 200 mls/hr Documented By: ARTHRU Pantoprazole Sodium 80 mg/ (Dextrose) 120 mls @ 480 mls/hr IV NOW ONE Stop: 10/07/23 10:44 Last Infusion: 10/07/23 12:06 Dose: Infused Documented By: Admin: 10/07/23 11:31 Dose: 480 mls/hr Documented By: ANNETTA Vancomycin HCl 1,500 mg/ (Sodium Chloride) 530 mls @ 200 mls/hr IV NOW ONE Stop: 10/07/23 14:23 Last Infusion: 10/07/23 15:18 Dose: Infused Documented By: Admin: 10/07/23 12:00 Dose: 200 mls/hr Documented By: ANNETTA Ioversol (Optiray 320 100ml) 94 ml IV ONCE ONE Stop: 10/07/23 09:59 Last Admin: 10/07/23 09:55 Dose: 94 ml Documented By: ILANA Morphine Sulfate (Morphine Sulfate 4 Mg/Ml 1 Ml Carp\\Vial) 4 mg IV NOW STA Stop: 10/07/23 09:17 Last Admin: 10/07/23 09:27 Dose: 4 mg Documented By: ANNETTA Imaging Data Radiologist's Impression: Abdomen/Pelvis CT 10/07/23 09:16 CT abd pelvis IV con only CLINICAL HISTORY: abd pain, nausea, diarrhea TECHNIQUE: Helical axial images of the abdomen and pelvis were obtained and displayed. Automated dose lowering techniques and/or adjustment according to patient size were utilized for this exam. This exam was performed with intravenous contrast. CT DOSE: 800.7 mGy.cm COMPARISON: Comparison is made to CT abdomen pelvis 09/01/2023 FINDINGS: Lower chest: Airspace opacity is in the right lower lobe, somewhat improved from prior exam. Liver: Unremarkable. No focal lesions are seen. Gallbladder and biliary tree: No calcified gallstones. Normal caliber wall. No intra- or extrahepatic biliary ductal dilation. Pancreas: Unremarkable, no focal lesions. Spleen: Unremarkable. Adrenals: Nodular thickening of the left adrenal gland is seen. Kidneys and ureters: Right kidney is atrophic. Wedge-shaped hypodensities in the left kidney also compatible with focal scarring. Bladder: Limited evaluation due to underdistention. Reproductive organs: Unremarkable. Bowel: Diverticulosis is seen without diverticulitis. The appendix is normal. Lymph nodes Retroperitoneal: Subcentimeter lymph nodes are noted. Pelvic: Unremarkable. Mesenteric: Unremarkable. Peritoneum: Normal. Vessels: Unremarkable. Abdominal wall: Unremarkable. Bones: Degenerative changes in the visualized spine. IMPRESSION: 1. No acute intra-abdominal abnormalities. 2. Partial visualization of right lower lobe airspace opacities compatible with pneumonia. 3. Atrophic right kidney and cortical scarring in the left kidney. ACT 112: Negative or not required by law. Electronically signed by: Levar Mcgowan M.D. 10/07/2023 10:26 AM Discharge Plan Visit Data Chief Complaint: Abdominal Pain Stated Complaint: AB PAIN ED Provider: Nelly Steiner Discharge Problem: Abdominal pain, Anemia, COPD (chronic obstructive pulmonary disease), Hyperglycemia, Elevated troponin, SAVANAH (acute kidney injury) Patient Disposition: Admitted As Inpatient Discharge Instructions Interventions: ED Discharge Assessment Last Done: 10/07/23 14:08 Discharge Problem: Abdominal pain Qualifiers: Abdominal location: upper abdomen, unspecified Qualified Code(s): R10.10 - Upper abdominal pain, unspecified Anemia Qualifiers: Anemia type: unspecified type Qualified Code(s): D64.9 - Anemia, unspecified
[2023-10-07] MEDS: OPTIRAY 320 100ml IV ONE (09:55)
[2023-10-07 09:57] LABS: Aspartate Aminotransferase 25 U/L (13-39); Potassium 3.9 mmol/L (3.5-5.1)
[2023-10-07 09:58] LABS: Alanine Aminotransferase 7 U/L (7-52); Albumin Globulin Ratio 1.3 (0.9-2); Albumin Level 3.4 gm/dl (3.4-5.0); Alkaline Phosphatase 92 U/L (34-104); Anion Gap 18 (3-11); BUN Creatinine Ratio 10.6 (10-20); Bilirubin,Total 3.6 mg/dl (0.2-1.0); Blood Urea Nitrogen 20 mg/dl (6-23); Calcium 8.3 mg/dl (8.6-10.3); Carbon Dioxide 15 mmol/L (21-32); Chloride 107 mmol/L (98-107); Creatinine Clr Calc Pharmacy 31.4 ml/min; Est GFR (African American) 32.8 ml/min; Est GFR (Non-African American) 28.3 ml/min; Globulin 2.7 gm/dl (2.5-4.0); Glucose 302 mg/dl (70-99(Fasting)); Lipase 15 U/L (11-82); Sodium 140 mmol/L (136-145); Total Protein 6.1 gm/dl (6.0-8.3); Troponin I High Sensitivity 18.1 pg/ml (0-14)
[2023-10-07] MEDS: PIPERACILLIN/TAZOBACTAM 4.5 GM/100 ML BAG IV ONE (10:20)
--- NOTE | 2023-10-07 10:24 | CT Scan Report ---
CT abd pelvis IV con only CLINICAL HISTORY: abd pain, nausea, diarrhea TECHNIQUE: Helical axial images of the abdomen and pelvis were obtained and displayed. Automated dose lowering techniques and/or adjustment according to patient size were utilized for this exam. This e xam was performed with intravenous contrast. CT DOSE: 800.7 mGy.cm COMPARISON: Comparison is made to CT abdomen pelvis 09/01/2023 FINDINGS: Lower chest: Airspace opacity is in the right lower lobe, somewhat improved from prior exam. Liver: Unremarkable. No focal lesions are seen. Gallbladder and biliary tree: No calcified gallstones. Normal caliber wall. No intra- or extrahepatic biliary ductal dilation. Pancreas: Unremarkable, no focal lesions. Spleen: Unremarkable. Adrenals: Nodular thickening of the left adrenal gland is seen. Kidneys and ureters: Right kidney is atrophic. Wedge-shaped hypodensities in the left kidney also com patible with focal scarring. Bladder: Limited evaluation due to underdistention. Reproductive organs: Unremarkable. Bowel: Diverticulosis is seen without diverticulitis. The appendix is normal. Lymph nodes Retroperitoneal: Subcentimeter lymph nodes are noted. Pelvic: Unremarkable. Mesenteric: Unremarkable. Peritoneum: Normal. Vessels: Unremarkable. Abdominal wall: Unremarkable. Bones: Degenerative changes in the visualized spine. IMPRESSION: 1. No acute intra-abdominal abnormalities. 2. Partial visualization of right lower lobe airspace opacities compatible with pneumonia. 3. Atrophic right kidney and cortical scarring in the left kidney. ACT 112: Negative or not required by law. Electronically signed by: Levar Mcgowan M.D. 10/07/2023 10:26 AM
--- NOTE | 2023-10-07 10:39 | History & Physical Report ---
Date of Service October 07, 2023 Assessment & Plan Plan n Ed over the weekend for Pnx and kidney stones 09/20 #Abdominal pain acute onset, 2 U PRBCs Cr1.88 #Acute hypoxic respiratory failure Lobar pneumonia --legionella, strep pneumonia MRSA nare #Acute macrocytic anemia #Leukocytosis -Hgb down to 4.2, MCV 120, WBC 31.09 #Lactic acidosis #Anion gap metabolic acidosis GAP 18, Lactate 10.8 #Hypergylcemia #Elevated troponin, iso likely sepsis and acute anemia Trend to peak tele Pneumonia of right lung due to infectious organism, unspecified part of lung (Primary) - XR CHEST 2 VIEWS COPD exacerbation (HCC) - Compressor Nebulizer; Inhale via nebulizer. Use as directed. COPD, severity to be determined (HCC) - Albuterol Sulfate HFA 108 (90 Base) MCG/ACT Inhalation Aerosol Solution; Inhale 2 Puffs by mouth every 6 hours as needed for Dyspnea or Wheezing. - Compressor Nebulizer; Inhale via nebulizer. Use as directed. Acute gastritis without hemorrhage, unspecified gastritis type - Omeprazole 20 MG Oral Capsule Delayed Release (PriLOSEC); Take 1 Capsule by mouth in the morning. 1 hour before the first meal of the day. Nephrolithiasis - ADULT/PEDS UROLOGY REFERRAL OP HTN, goal below 140/90 - amLODIPine Besylate 5 MG Oral Tablet (Norvasc); Take 1 Tablet by mouth in the morning. #COPD Baseline pulmonary function testing along with nocturnal oximetry on room air and 6 minute walk test was requested. [facility] 09/30 #GERD #RLS #Tobacco use 20 pack year Admission and Anticipated Discharge Date Admission Date: Time spent evaluating patient, direct bedside care, chart review, placing orders, interpretation of diagnostic studies, discussion with consultants, patient, and family members, as well as other required patient management activities is 60 minutes. History of Present Illness Chief Complaint: is a year old woman/gentleman with past medical history remarkable for....presented to [facility] ED due to . In the ED, vitals were notable for BP of , HR of , and O2 sat of . Imaging revealed EKG ED interventions: Consultants: Patient to be admitted to .... for further evaluation and management of .... Primary Care Provider: NO PCP Allergies Allergy/AdvReac Type Severity Reaction Status Date / Time No Known Allergies Allergy Mild OTHER Unverified 07/12/19 09:42 Home Medications Medication Instructions Recorded Confirmed Type albuterol sulfate 90 mcg/actuation 2 inh inhalation Q6H PRN shortness 01/18/23 Rx aerosol inhaler of breath or wheezing #8.5 grams amlodipine 5 mg tablet (Norvasc) 5 mg PO QAM #30 tabs 01/18/23 Rx doxycycline hyclate 100 mg capsule 100 mg PO BID #10 caps 01/18/23 Rx fluticasone 250 mcg-salmeterol 50 1 inh inhalation BID #60 ea 01/18/23 Rx mcg/dose blistr powdr for inhalation (Advair Diskus) prednisone 10 mg tablet 10 mg PO UD #30 tabs 01/18/23 Rx Past Med/Surg History Medical History No known health problems Social History Smoking Status: Current some day smoker Tobacco Type: Cigarettes Second Hand Exposure: Yes; Do You Dip or Chew Tobacco: No; Hx Alcohol Use: No Hx Substance Use: Yes (medical MMJ pt) Last Used Substance: Unknown Preferred Language: Greenlandic Communication Ability: Effective Musical String Maker Required: No Beliefs That Will Affect Care: None Current Living Situation: Alone Feels Safe at Home: Yes Assistive Devices: None Review of Systems Review of Systems: Constitutional: (-) fever/chills, (-) recent loss of weight, (-) appetite changes, (-) night sweats. Head: (-) headache, (-) dizziness. Eye: (-) blurring of vision, (-) double vision, (-) redness. Ear: (-) hearing loss, (-) discharge, (-) vertigo Nose: (-) discharge, (-) bleeding, (-) congestion, (-) post nasal drip. Throat: (-) sore throat, (-) hoarseness of voice, (-) odynophagia. Cardiovascular: (-) chest pain, (-) palpitations, (-) syncope, (-) orthopnea, (- ) PND, (-) leg swelling. Respiratory: (-) shortness of breath, (-) cough, (-) wheezing, (-) hemoptysis. Neuro: (-) weakness in extremities, (-) numbness, (-) tingling, (-) tremor. Gastrointestinal: (-) belly pain, (-) belly distension, (-) nausea, (-) vomiting, (-) diarrhea, (-) constipation, (-) na, (-) hematemesis, (-) hematochezia, (-) bowel incontinence Genitourinary: (-) hematuria, (-) dysuria, (-) polyuria, (-) hesitancy, (-) frequency, (-) urinary incontinence. Musculoskeletal: (-) myalgia, (-) arthralgia. Skin: (-) rashes. Endocrine: (-) heat/cold intolerance. Psychiatry: (-) depression, (-) hallucination. Physical Exam Physical Exam: GENERAL APPEARANCE: AxOx4, generally well-appearing M/F, no acute distress. HEENT: NC, AT. MMM. EOMI, clear conjunctiva, oropharynx clear. NECK: Supple without lymphadenopathy. No stiffness or restricted ROM. HEART: Normal rate and regular rhythm, normal S1/S1, no m/r/g LUNGS: CTAB, moving air well. No crackles or wheezes are heard. ABDOMEN: Soft, nontender, nondistended with good bowel sounds heard. BACK: No CVAT, no obvious deformity. EXTREMITIES: Without cyanosis, clubbing or edema. NEUROLOGICAL: Grossly nonfocal. Alert and oriented, moving all 4 extremities. CN not formally tested but appear grossly intact. Observed to ambulate with normal gait. Skin: Warm and dry without any rash. Results & Data Results & Data Vital Signs (Past 12 Hours) Vital Signs Temp Pulse Pulse Resp BP BP Pulse Ox 10/07/23 10:02 167/89 H 10/07/23 10:02 92 H 28 H 96 10/07/23 10:01 92 H 28 H 99 10/07/23 09:45 164/88 H 10/07/23 09:45 87 32 H 97 10/07/23 09:40 88 17 95 10/07/23 09:39 84 L 10/07/23 09:31 171/135 H 10/07/23 09:31 87 18 94 10/07/23 09:30 91 H 05/12/24 09:20 93 H 18 10/07/23 09:10 90 15 10/07/23 09:00 92 H 15 10/07/23 08:54 90 10/07/23 08:51 93 H 21 10/07/23 08:51 93 H 20 166/87 H 95 10/07/23 08:51 36.7 C 91 H 20 166/87 H 95 O2 Del Method O2 Flow Rate 10/07/23 10:02 10/07/23 10:02 10/07/23 10:01 10/07/23 09:45 10/07/23 09:45 10/07/23 09:40 Nasal Cannula 3 10/07/23 09:39 Room Air 10/07/23 09:31 10/07/23 09:31 10/07/23 09:30 10/07/23 09:20 10/07/23 09:10 10/07/23 09:00 10/07/23 08:54 10/07/23 08:51 10/07/23 08:51 Room Air 10/07/23 08:51 Room Air Diagnostic Findings Result Date: 09/28/2023 IMPRESSION Patchy right lung opacities may represent persistent or resolving pneumonia given the history. Recommend follow-up in 4-6 weeks and to resolution. Available Radiologic data was reviewed by me in PACS. The images were shown to the patient and findings were discussed with the patient. Medications Administered Albuterol Sulfate HFA 108 (90 Base) MCG/ACT Inhalation Aerosol Solution amLODIPine Besylate 5 MG Oral Tablet (Norvasc) Compressor Nebulizer Omeprazole 20 MG Oral Capsule Delayed Release (PriLOSEC) Fluticasone Propionate 50 MCG/ACT Nasal Suspension (Flonase) Albuterol Sulfate (2.5 MG/3ML) 0.083% Inhalation Nebulization Solution (Proventil) Fluticasone-Salmeterol 250-50 MCG/ACT Inhalation Aerosol Powder Breath Activated Albuterol Sulfate (Proventil) (2.5 MG/3ML) 0.083% inhalation solution 2.5 mg Albuterol Sulfate (Proventil) (5 MG/ML) 0.5% *conc* inhalation solution 2.5 mg Albuterol Sulfate (Proventil) (2.5 MG/3ML) 0.083% inhalation solution 2.5 mg
[2023-10-07] MEDS ORDERED: VANCOMYCIN CONSULT ACTIVE PRN (10:56)
[2023-10-07 11:00] LABS: Immature Retic Fraction 35.2 % (2.3-15.9); Reticulated Hemoglobin 32.6 pg (28.2-36.6); Reticulocyte % 19.77 % (0.50-2.00); Reticulocytes # 0.23 10^6/uL (0.020-0.100)
--- NOTE | 2023-10-07 11:14 | History & Physical Report ---
Date of Service October 07, 2023 Assessment & Plan (1) Anemia: Plan: This is a 63 y/o female with recent right pneumonia, COPD diagnosed in 2022, RLS, history of tobacco abuse, nephrolithiasis, and HTN who presented to the ED today with abdominal pain. Work-up in the ED revealed an acute drop in pt's Hgb from ~11 to 4 since he was seen in the ED two weeks ago. Pt denies overt evidence of blood loss other than hematuria which started this morning when she developed the abdominal pain. Antibody screen for planned transfusion showed pt with multiple antibodies although pt denies prior transfusion - currently blood has been requested but may not be available until later this evening or tomorrow. - Admit to PCU - Repeat H&H now and trend Q6 hours - if dropping and no blood available, may need to consider transfer to tertiary facility - Hematology consult - appreciate recommendations (IVIG, steroids being started) - Multiple labs pending including peripheral smear, haptoglobin - iron and ferritin markedly elevated, reticulocyte count (2) Abdominal pain: Plan: CT abd/pel negative for clear etiology Continue pantoprazole gtt for now (3) COPD (chronic obstructive pulmonary disease): Plan: Chronic, stable Continue outpatient regimen (4) Essential hypertension: Plan: Chronic, stable Hold amlodipine for now and monitor BP due to concern for ongoing blood loss (5) Elevated troponin: Plan: Will trend, likely demand from acute anemia Plan Pt seen and reviewed with collaborating physician, Dr. Marques. Plan of care discussed and as outlined below - please see her note for additional details. DVT Prophylaxsis: SCDs Code Status: Full code Dispo: PCU Robby Polanco PA-C History of Present Illness Chief Complaint: abdominal pain Primary Care Provider: NO PCP This is a 63 y/o female with recent right pneumonia, COPD diagnosed in 2022, RLS, history of tobacco abuse, nephrolithiasis, and HTN who presented to the ED today with abdominal pain. Pt was seen in the ED at the end of August with right rib/flank pain, cough, and SOB, and was diagnosed with RLL community-acquired pneumonia. She was placed on cefdinir and azithromyin and discharged to f/u with PCP. She saw PCP office on 09/27 and had a repeat chest x-ray that showed resolving pneumonia. Pt also saw pulmonology on 10/01/23 to establish care and no new medications were added. Pt was diagnosed with COPD last year after exposure to [place] fires and associated flare-up of respiratory symptoms. Pt reports that she has not been smoking since being diagnosed with pneumonia and would like to quit smoking permanently. Over the last few days, she notes a recurrent cough, that is non-productive, and some lightheadedness. Today she started with upper abdominal pain that has been waxing and waning in intensity. May improve with some positions. She reports that she went to the grocery store and noticed that she was lightheaded so she came home and was still lightheaded so she lay down to watch TV, which was when the pain started. Not eating much due to the pain. Has had nausea but no vomiting. Had a bowel movement this morning - stools have been softer than normal the past couple weeks. Describes as diarrhea "a couple times" per day. Didn't notice any blood in the stool. Urine this morning appeared normal but now with gross hematuria on straight cath in the ED. Feeling cold and hot but no fevers. She denies prior history of blood transfusion. No prior . No post-menopausal bleeding. She notes that her mother from something related to post-menopausal bleeding but pt unsure what the final diagnosis was as her mother didn't go to the doctor until her symptoms were advanced. Allergies Allergy/AdvReac Type Severity Reaction Status Date / Time No Known Allergies Allergy Mild OTHER Unverified 07/12/19 09:42 Home Medications Medication Instructions Recorded Confirmed Type albuterol sulfate 90 mcg/actuation 2 inh inhalation Q6H PRN shortness 01/18/23 10/07/23 Rx aerosol inhaler of breath or wheezing #8.5 grams amlodipine 5 mg tablet (Norvasc) 5 mg PO QAM #30 tabs 01/18/23 10/07/23 Rx fluticasone 250 mcg-salmeterol 50 1 inh inhalation BID #60 ea 01/18/23 10/07/23 Rx mcg/dose blistr powdr for inhalation (Advair Diskus) omeprazole 20 mg capsule,delayed 20 mg PO DAILY 10/07/23 10/07/23 History release Past Med/Surg History Medical History (Updated 10/07/23 @ 15:43 by Nelly Steiner DO) COPD (chronic obstructive pulmonary disease) Essential hypertension RLS (restless legs syndrome) Pneumonia Surgical History (Updated 10/07/23 @ 14:24 by Jennifer Polanco PA-C) History of tonsillectomy Social History Smoking Status: Current some day smoker Tobacco Type: Cigarettes Second Hand Exposure: Yes; Do You Dip or Chew Tobacco: No; Hx Alcohol Use: No Hx Substance Use: Yes (medical MMJ pt) Last Used Substance: Unknown Preferred Language: Urdu Communication Ability: Effective Mechanical Engineering Technician Required: No Beliefs That Will Affect Care: None Current Living Situation: Alone Other Information That Helps Us Care for You: No Feels Safe at Home: Yes Safety Concerns: Feels Safe At This Time Assistive Devices: None Review of Systems Review of Systems: All systems reviewed & are unremarkable except as noted in HPI & below Constitutional: + fatigue and + anorexia Ear, Nose, Mouth, Throat: no epistaxis Respiratory: + cough; no hemoptysis Cardiovascular: + lightheadedness; no chest pain and no palpitations Gastrointestinal: as per Subjective / HPI Genitourinary: + hematuria; no dysuria Musculoskeletal: + back pain Integumentary: no yellowing of the skin Neurologic: no seizure-like activity and no confusion Physical Exam Physical Exam: For details of the physical exam, please see the physician addendum. Results & Data Results & Data Vital Signs (Past 12 Hours) Vital Signs Temp Pulse Pulse Resp BP BP Pulse Ox 10/07/23 10:02 167/89 H 10/07/23 10:02 92 H 28 H 96 10/07/23 10:01 92 H 28 H 99 10/07/23 09:45 164/88 H 10/07/23 09:45 87 32 H 97 10/07/23 09:40 88 17 95 10/07/23 09:39 84 L 10/07/23 09:31 171/135 H 10/07/23 09:31 87 18 94 10/07/23 09:30 91 H 10/07/23 09:20 93 H 18 10/07/23 09:10 90 15 10/07/23 09:00 92 H 15 10/07/23 08:54 90 10/07/23 08:51 93 H 21 10/07/23 08:51 93 H 20 166/87 H 95 10/07/23 08:51 36.7 C 91 H 20 166/87 H 95 O2 Del Method O2 Flow Rate 10/07/23 10:02 10/07/23 10:02 10/07/23 10:01 10/07/23 09:45 10/07/23 09:45 10/07/23 09:40 Nasal Cannula 3 10/07/23 09:39 Room Air 10/07/23 09:31 10/07/23 09:31 10/07/23 09:30 10/07/23 09:20 10/07/23 09:10 10/07/23 09:00 10/07/23 08:54 10/07/23 08:51 10/07/23 08:51 Room Air 10/07/23 08:51 Room Air Laboratory Results Laboratory Results - last 24 hr 10/07/23 10/07/23 10/07/23 09:01 09:05 09:23 WBC 31.09 H* RBC 1.15 L Hgb 4.2 L* Hct 13.9 L* MCV 120.9 H MCH 36.5 H MCHC 30.2 L RDW Std Deviation 91.4 H RDW Coeff of Ruthann 21.3 H Plt Count 163 MPV 10.4 Immature Gran % (Auto) 3.1 Neut % (Auto) 76.6 Lymph % (Auto) 16.1 [place] % (Auto) 1.1 Eos % (Auto) 2.9 Baso % (Auto) 0.2 Reticulocyte % (Auto) 19.77 H Neut # (Auto) 23.80 H Lymph # (Auto) 5.01 H [place] # (Auto) 0.35 Eos # (Auto) 0.91 H Baso # (Auto) 0.05 Reticulocyte # 0.230 H Immature Gran # (Auto) 0.97 H Absolute Nucleated RBC 0.08 Nucleated RBC % (auto) 0.3 Blood Smear Review Pending Polychromasia 2+ Anisocytosis Present Immature Retic Fraction 35.2 H Retic Hgb Content 32.6 Haptoglobin Pending PT 12.2 H INR 1.1 Sodium 140 Potassium 3.9 Chloride 107 Carbon Dioxide 15 L Anion Gap 18 H BUN 20 Creatinine 1.88 H Est Cr Clr Drug Dosing 31.4 Est GFR ( Amer) 32.8 Est GFR (Non-Af Amer) 28.3 BUN/Creatinine Ratio 10.6 Glucose 302 H* Lactate 10.4 H* Calcium 8.3 L Magnesium 2.0 Iron Pending TIBC Pending Unsaturated IBC Pending Transferrin % Sat Pending Ferritin Pending Total Bilirubin 3.6 H AST 25 ALT 7 Alkaline Phosphatase 92 Lactate Dehydrogenase Pending Troponin I High Sens 18.1 H Total Protein 6.1 Albumin 3.4 Globulin 2.7 Albumin/Globulin Ratio 1.3 Lipase 15 Vitamin B12 Pending Folate Pending Urine Color Urine Appearance Urine pH Ur Specific [place] Urine Protein Urine Glucose (UA) Urine Ketones Urine Blood Urine Nitrite Urine Bilirubin Urine Urobilinogen Ur Leukocyte Esterase Mycoplasma pneumon IgG Pending Mycoplasma pneumon IgM Pending S.pneumoniae Type 1 IgG Pending S.pneumoniae Type 3 IgG Pending S.pneumoniae Type 4 IgG Pending S.pneumoniae Type 5 IgG Pending S.pneumoniae Type 8 IgG Pending S.pneumoniae 9 (9N) IgG Pending S.pneumon 12 (12F) IgG Pending S.pneumoniae Typ 14 IgG Pending S.pneumon 19 (19F) IgG Pending S.pneumon 23 (23F) IgG Pending S.pneumon 26 (6B) IgG Pending S.pneumon 51 (7F) IgG Pending S.pneumon 56 (18C) IgG Pending S.pneumon 68 (9V) IgG Pending Blood Type A Positive Blood Type Recheck Antibody Screen POSITIVE A Antibody Identification Pending Antibody ID Comment Pending Direct Antiglob Test Pending MANUELA (IgG-AHG) Pending MANUELA, Polyspecific Pending MANUELA C3b, C3d 5 Min Pending Crossmatch See Detail 10/07/23 10/07/23 10/07/23 10:23 11:02 11:07 WBC RBC Hgb Hct MCV MCH MCHC RDW Std Deviation RDW Coeff of Ruthann Plt Count MPV Immature Gran % (Auto) Neut % (Auto) Lymph % (Auto) [place] % (Auto) Eos % (Auto) Baso % (Auto) Reticulocyte % (Auto) Neut # (Auto) Lymph # (Auto) [place] # (Auto) Eos # (Auto) Baso # (Auto) Reticulocyte # Immature Gran # (Auto) Absolute Nucleated RBC Nucleated RBC % (auto) Blood Smear Review Polychromasia Anisocytosis Immature Retic Fraction Retic Hgb Content Haptoglobin PT INR Sodium Potassium Chloride Carbon Dioxide Anion Gap BUN Creatinine Est Cr Clr Drug Dosing Est GFR ( Amer) Est GFR (Non-Af Amer) BUN/Creatinine Ratio Glucose Lactate 6.2 H* Calcium Magnesium Iron TIBC Unsaturated IBC Transferrin % Sat Ferritin Total Bilirubin AST ALT Alkaline Phosphatase Lactate Dehydrogenase Troponin I High Sens Total Protein Albumin Globulin Albumin/Globulin Ratio Lipase Vitamin B12 Folate Urine Color Pending Urine Appearance Pending Urine pH Pending Ur Specific [place] Pending Urine Protein Pending Urine Glucose (UA) Pending Urine Ketones Pending Urine Blood Pending Urine Nitrite Pending Urine Bilirubin Pending Urine Urobilinogen Pending Ur Leukocyte Esterase Pending Mycoplasma pneumon IgG Mycoplasma pneumon IgM S.pneumoniae Type 1 IgG S.pneumoniae Type 3 IgG S.pneumoniae Type 4 IgG S.pneumoniae Type 5 IgG S.pneumoniae Type 8 IgG S.pneumoniae 9 (9N) IgG S.pneumon 12 (12F) IgG S.pneumoniae Typ 14 IgG S.pneumon 19 (19F) IgG S.pneumon 23 (23F) IgG S.pneumon 26 (6B) IgG S.pneumon 51 (7F) IgG S.pneumon 56 (18C) IgG S.pneumon 68 (9V) IgG Blood Type Blood Type Recheck A Positive Antibody Screen Antibody Identification Antibody ID Comment Direct Antiglob Test MANUELA (IgG-AHG) AMNUELA, Polyspecific MANUELA C3b, C3d 5 Min Crossmatch Diagnostic Findings Abdomen/Pelvis CT 10/07/23 09:16 CT abd pelvis IV con only CLINICAL HISTORY: abd pain, nausea, diarrhea TECHNIQUE: Helical axial images of the abdomen and pelvis were obtained and displayed. Automated dose lowering techniques and/or adjustment according to patient size were utilized for this exam. This exam was performed with intravenous contrast. CT DOSE: 800.7 mGy.cm COMPARISON: Comparison is made to CT abdomen pelvis 09/01/2023 FINDINGS: Lower chest: Airspace opacity is in the right lower lobe, somewhat improved from prior exam. Liver: Unremarkable. No focal lesions are seen. Gallbladder and biliary tree: No calcified gallstones. Normal caliber wall. No intra- or extrahepatic biliary ductal dilation. Pancreas: Unremarkable, no focal lesions. Spleen: Unremarkable. Adrenals: Nodular thickening of the left adrenal gland is seen. Kidneys and ureters: Right kidney is atrophic. Wedge-shaped hypodensities in the left kidney also compatible with focal scarring. Bladder: Limited evaluation due to underdistention. Reproductive organs: Unremarkable. Bowel: Diverticulosis is seen without diverticulitis. The appendix is normal. Lymph nodes Retroperitoneal: Subcentimeter lymph nodes are noted. Pelvic: Unremarkable. Mesenteric: Unremarkable. Peritoneum: Normal. Vessels: Unremarkable. Abdominal wall: Unremarkable. Bones: Degenerative changes in the visualized spine. IMPRESSION: 1. No acute intra-abdominal abnormalities. 2. Partial visualization of right lower lobe airspace opacities compatible with pneumonia. 3. Atrophic right kidney and cortical scarring in the left kidney. ACT 112: Negative or not required by law. Electronically signed by: Levar Mcgowan M.D. 10/07/2023 10:26 AM Medications Administered Discontinued Medications Sodium Chloride (Nss) 1,000 mls @ 999 mls/hr IV .Q1H1M ONE Stop: 10/07/23 10:16 Last Infusion: 10/07/23 10:43 Dose: Infused Documented By: Admin: 10/07/23 09:27 Dose: 999 mls/hr Documented By: ANNETTA Famotidine (Pepcid 20mg Iv Push) 20 mg in 5 mls @ 2.5 mls/min IV NOW STA Stop: 10/07/23 09:17 Last Admin: 10/07/23 09:27 Dose: 2.5 mls/min Documented By: ANNETTA Piperacillin Sod/Tazobactam Sod (Zosyn) 4.5 gm in 100 mls @ 200 mls/hr IV NOW ONE Stop: 10/07/23 10:15 Last Infusion: 10/07/23 10:55 Dose: Infused Documented By: Admin: 10/07/23 10:20 Dose: 200 mls/hr Documented By: ARTHUR Ioversol (Optiray 320 100ml) 94 ml IV ONCE ONE Stop: 10/07/23 09:59 Last Admin: 10/07/23 09:55 Dose: 94 ml Documented By: ILANA Morphine Sulfate (Morphine Sulfate 4 Mg/Ml 1 Ml Carp\\Vial) 4 mg IV NOW STA Stop: 10/07/23 09:17 Last Admin: 10/07/23 09:27 Dose: 4 mg Documented By: ANNETTA Supervising Physician Co-Signing Physician Notes I have seen and discussed the case with the collaborating advanced practitioner. I agree with the above H&P. I have reviewed and confirmed the patients medical history, the findings on physical examination, and the patients diagnosis and treatment plan with Collin DRAKE and agree with the information documented. In short, Ms. Goff is a 63 year old woman with history of COPD, GERD, RLS who is admitted for evaluation of acute anemia and abdominal pain. Patient reports pain set in last night, is dull and in upper abdomen. Endorses nausea, but no vomiting. Denies fevers chills hematochezia hematemesis. Denies history of transfusion or known bleeding disorder. Never had children. Reports active tobacco use--but hasnt smoked in weeks. Reports improvment in pneumonia--denies any cough or sputum production. Patient with softer stool. New hematuria this am. GENERAL APPEARANCE: AxOx4, mildly uncomfortable. HEENT: NC, AT. MMM. EOMI, clear conjunctiva, oropharynx clear. NECK: Supple without lymphadenopathy. No stiffness or restricted ROM. HEART: Normal rate and regular rhythm, normal S1/S1, no m/r/g LUNGS: CTAB, moving air well. No crackles or wheezes are heard. ABDOMEN: Soft,, exam not consistent with pain reported, BACK: No CVAT, no obvious deformity. EXTREMITIES: Without cyanosis, clubbing or edema. NEUROLOGICAL: Grossly nonfocal. Alert and oriented, moving all 4 extremities. CN not formally tested but appear grossly intact Skin: Warm and dry without any rash. #Acute macrocytic anemia, concern for wAIHA or other hemolytic anemia #Leukocytosis -Hgb down to 4.2, MCV 120, WBC 31.09 -Ferritin >7500, iron 284, LDH 579, T bili 3.5 B12 480 folate 10.99 Peripheral smear pending Blood with antibodies, MANUELA + Blood in process at [place] Transfuse when able Start 1g Solumedrol, daily IVIG x 2 days -Will need to reorder second day tomorrow 10/07 @1400 vital signs stable monitor on tele SCDs now, DVT chemoprophylaxis when stable autoimmune work up, spep in am legionella, strep pneumonia antigen given recent pna and potential source for aiha empiric coverage with zosyn while infectious work up pending #abdominal pain likely iso hemolysis, CT unrevealing and exam not impressive (soft, doughy, pain not worsened necessarily with palpation) Work up as above analgesia and resuscitation IV PPI BID CLD #Lactic acidosis #Anion gap metabolic acidosis GAP 18, Lactate 10.8 Improving, trend to resolution #Hypergylcemia denies diabetes, elevated glucose, A1C order for am(will likely be falsely low iso hemolysis) SSI and BG checks #Elevated troponin, iso likely sepsis and acute anemia Trend to peak tele #SAVANAH on likely ckd Cr1.88, atrophic right kidney noted iso hemolysis, now s/p contrast exposure Avoid further nephrotoxic agents #Nephrolithiasis 2mm stone in right atrophic kidney no noted on ct #HTN, goal below 140/90 - amLODIPine Besylate 5 MG Oral Tablet (Norvasc); Take 1 Tablet by mouth in the morning. hold #COPD Baseline pulmonary function testing along with nocturnal oximetry on room air and 6 minute walk test was requested. [facility] 09/30 resume #Tobacco use 20 pack year I spent a total of 45 minutes coordinating, documenting, and providing care for this patient excluding time spent in the performance of separately billed services. All of the aforementioned completed outside of collaborating with the assigned advanced practitioner for a full treatment plan. I have reviewed the advanced practitioner's documentation, and I agree with, and take responsibility for the plan of care (1) Anemia Anemia type: unspecified type Qualified Code(s): D64.9 - Anemia, unspecified (2) Abdominal pain Abdominal location: upper abdomen, unspecified Qualified Code(s): R10.10 - Upper abdominal pain, unspecified (3) COPD (chronic obstructive pulmonary disease) COPD type: unspecified COPD Qualified Code(s): J44.9 - Chronic obstructive pulmonary disease, unspecified
[2023-10-07 11:28] LABS: Appearance Urine Slightly Cloudy (Clear)
[2023-10-07 11:29] LABS: Iron 284 mcg/dl (35-150)
[2023-10-07 11:29] LABS: Specific Gravity Urine 1.031 (1.000-1.030)
[2023-10-07 11:30] LABS: Lactate Dehydrogenase 579 U/L (86-244)
[2023-10-07] MEDS: PANTOprazole 80 MG in DEXTROSE 5% 100 ML IV ONE (11:31)
[2023-10-07 11:32] LABS: Bacteria Urine None Seen (None Seen); Epithelial Cell Urine 0-2 /hpf (0-2); WBC Urine 0-5 /hpf (0-5)
[2023-10-07 11:33] LABS: RBC Urine 0-2 /hpf (0-2)
[2023-10-07 11:35] LABS: Unsaturated Iron Binding Cap < 55 mcg/dl (155-355)
[2023-10-07] MEDS: LACTATED RINGER'S 1,000 ML IV SCH (11:38)
[2023-10-07] MEDS: PANTOprazole 40 MG in DEXTROSE 5% MINI-B 100 ML IV SCH (11:54)
[2023-10-07] MEDS: VANCOMYCIN HCL 1,500 MG in SODIUM CHLORIDE 0.9% 500 ML IV ONE (12:00)
[2023-10-07] MEDS ORDERED: IMMUNE GLOBULIN (HUMAN) SOLN IV ONE (12:01)
[2023-10-07 12:02] LABS: Folate (Folic Acid),Ser orPlas 10.99 ng/ml (>5.38)
[2023-10-07 12:09] LABS: Hematocrit (blood only) 12.4 % (37.0-47.0)
[2023-10-07] MEDS ORDERED: methylPREDNISolone 10 mg/mL (For Ped Dose < 7mg) IV SCH (12:15)
--- NOTE | 2023-10-07 12:18 | Electrocardiogram Report ---
Test Reason : Blood Pressure : / mmHG Vent. Rate : 090 BPM Atrial Rate : 090 BPM P-R Int : 146 ms QRS Dur : 074 ms QT Int : 380 ms P-R-T Axes : 074 066 124 degrees QTc Int : 464 ms Normal sinus rhythm Nonspecific ST abnormality Abnormal ECG When compared with ECG of 21-SEP-2023 18:18, Nonspecific T wave abnormality now evident in Inferior leads T wave inversion now evident in Lateral leads QT has lengthened Confirmed by Devon Barbosa ([id number]) on 10/07/2023 12:17:29 PM Referred By: Confirmed By:Jassi Barbosa
[2023-10-07 12:38] LABS: Ferritin > 7500.0 ng/ml (8-388)
[2023-10-07] MEDS: FOLIC ACID 1 MG TAB PO SCH (12:57)
[2023-10-07] MEDS: methylPREDNISolone 1,000 MG in SODIUM CHLORIDE 0.9% 250 ML IV SCH (13:30)
--- NOTE | 2023-10-07 14:38 | Pharmacy Report ---
Pharmacy PK ABX Note - Date of Service October 07, 2023 - Assessment and Plan Assessment 63 year old F receiving vancomycin for empiric treatment, zosyn x 1 received in ED, awaiting transfer to floor. WBC 31, afebrile, blood cultures pending. MRSA nasal swab negative. Possible pneumonia on CT. Hgb 4.0. Plan Vancomycin * Loading dose: 1500 mg IV x 1 * Maintenance dose: 1000 mg IV every 24 hours * Regimen is predicted to achieve target AUC/LOUISE of 400-600 mg/L.hr with first 4 doses, may need reduced if continued/no change in renal function * Random level to be ordered if continued >48 hours Pharmacy will continue to follow and will adjust dose/frequency as necessary. Thank you. Pharmacy has transitioned to AUC monitoring for vancomycin. AUC/LOUISE is the preferred PK/PD target and is associated with decreased risk of nephrotoxicity compared to traditional trough targets.
[2023-10-07] MEDS: Octagam 10% IVIG 10 gram bottle IV SCH (15:14)
[2023-10-07] MEDS ORDERED: CARBOHYDRATES FOR HYPOGLYCEMIA PO PRN (16:19)
[2023-10-07] MEDS ORDERED: DEXTROSE 50% 50 ML SYRINGE IV PRN (16:19)
[2023-10-07] MEDS ORDERED: GLUCOSE 10 TAB/TUBE PO PRN (16:19)
[2023-10-07] MEDS ORDERED: GLUCOSE 40% GEL 15 GM TUBE PO PRN (16:19)
[2023-10-07] MEDS ORDERED: GLUCAGON FOR INJ 1 MG VIAL SQ PRN (16:19)
[2023-10-07] MEDS: Octagam 10% IVIG 20 gram bottle IV SCH (16:28)
[2023-10-07 17:02] LABS: Hematocrit (blood only) 17.2 % (37.0-47.0); Hemoglobin 5.9 g/dl (12.0-16.0)
[2023-10-07] MEDS: INSULIN ASPART PER UNIT CHARGE SC SCH (17:09)
[2023-10-08] MEDS: ONDANSETRON INJ 2 MG/ML 2 ML VIAL IV STA (03:06)
[2023-10-08] MEDS: VANCOMYCIN HCL 1,000 MG in SODIUM CHLORIDE 0.9% 250 ML IV SCH (05:47)
[2023-10-08 07:24] LABS: Hematocrit (blood only) 23.5 % (37.0-47.0)
[2023-10-08 07:34] LABS: Estimated Average Glucose 74 mg/dl; Hemoglobin A1C 4.2 % (4.5-5.6)
--- NOTE | 2023-10-08 08:01 | Oncology Consultation ---
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 Flow for PNH has been ordered and is still pending. -Has anuric renal failure so we will hold off on further IVIG infusions. Continue with steroids, Folic acid for now. -Given leukocytosis, which was noted prior to initiation of steroids, will need workup to rule out hematologic malignancy as a possible cause of hemolytic anemia. Thank you for this consult. Hematology will sign off at this time. Please feel free to call if you have any further questions. History of Present Illness Reason for Consultation: Severe anemia Attending Physician: Mekhi Ly MD History of Present Illness 63-year-old female who presented to [facility] yesterday with complaints of abdominal pain, hematuria and dyspnea on exertion. Labs obtained while in the ED revealed severe anemia with hemoglobin of 4.2, hematocrit of 13.9. Platelet count was normal at 1 63,000, WBC was elevated at 31,000. Anemia workup highly suggestive of hemolysis with LDH of 579, total bilirubin of 3.6, reticulocyte count of 0.23. 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 CT abdomen and pelvis on 10/07/2023 revealed no acute intra abdominal abnormalities. Due to concern for an warm autoimmune hemolytic anemia, recommended starting her on methylprednisolone 1 g IV per day, IVIG 1 g/kg/day x 2 days. Also recommended obtaining peripheral smear review and flow cytometry and peripheral blood. She received IVIG and methylprednisolone on 10/07/2023. Also transfused with 2 units PRBC which were obtained from [place] due to presence of antibodies. Labs obtained today revealed improvement in hemoglobin to 7.7 and hematocrit to 22.2. White cell count was around 25,000 and platelet count had declined to 36,000. Of note, renal function was initially 1.88 and worsened to 4.12 today.Peripheral smear review by pathology earlier today did not show any evidence of spherocytes or schistocytes Patient was evaluated by nephrology earlier today who recommended transfer to tertiary center due to Anuric acute renal failure Allergies Allergy/AdvReac Type Severity Reaction Status Date / Time No Known Allergies Allergy Mild OTHER Unverified 07/12/19 09:42 Home Medications Medication Instructions Recorded Confirmed Type albuterol sulfate 90 mcg/actuation 2 inh inhalation Q6H PRN shortness 01/18/23 10/07/23 Rx aerosol inhaler of breath or wheezing #8.5 grams amlodipine 5 mg tablet (Norvasc) 5 mg PO QAM #30 tabs 01/18/23 10/07/23 Rx fluticasone 250 mcg-salmeterol 50 1 inh inhalation BID #60 ea 01/18/23 10/07/23 Rx mcg/dose blistr powdr for inhalation (Advair Diskus) omeprazole 20 mg capsule,delayed 20 mg PO DAILY 10/07/23 10/07/23 History release Patient History Medical History COPD (chronic obstructive pulmonary disease) Essential hypertension RLS (restless legs syndrome) Pneumonia Surgical History History of tonsillectomy Social History Smoking Status: Current some day smoker Tobacco Type: Cigarettes Second Hand Exposure: Yes; Do You Dip or Chew Tobacco: No; Hx Alcohol Use: No Hx Substance Use: Yes (medical MMJ pt) Last Used Substance: Unknown Preferred Language: Ethiopian Communication Ability: Effective Electrical Line Worker Required: No Beliefs That Will Affect Care: None Current Living Situation: Alone Other Information That Helps Us Care for You: No Feels Safe at Home: Yes Safety Concerns: Feels Safe At This Time Assistive Devices: Nebulizer Results & Data Vital Signs (Past 12 Hours) Vital Signs Temp Pulse Pulse Resp BP BP Pulse Ox 10/08/23 07:23 10/08/23 05:25 36.7 C 73 20 154/90 H 96 10/08/23 04:25 36.8 C 78 20 155/92 H 96 10/08/23 03:25 36.4 C L 76 20 152/90 H 96 10/08/23 02:57 36.8 C 81 18 155/89 H 96 10/08/23 02:40 36.5 C 82 18 153/93 H 95 10/08/23 02:25 36.4 C L 83 20 145/87 H 95 10/08/23 02:04 36.8 C 79 18 143/83 H 95 10/08/23 01:46 36.8 C 88 20 138/90 93 10/08/23 00:46 36.8 C 83 18 132/83 94 10/08/23 00:16 37.1 C 92 H 20 134/83 93 10/08/23 00:01 36.5 C 87 20 138/82 94 10/07/23 23:44 36.5 C 89 20 131/81 94 10/07/23 23:12 36.9 C 87 18 142/87 H 94 10/07/23 23:12 10/07/23 22:55 88 10/07/23 20:57 85 20 143/86 H 93 10/07/23 20:34 37.2 C 87 20 150/85 H 95 O2 Del Method O2 Flow Rate 10/08/23 07:23 Nasal Cannula 2 10/08/23 05:25 2 10/08/23 04:25 2 10/08/23 03:25 2 10/08/23 02:57 2 10/08/23 02:40 2 10/08/23 02:25 2 10/08/23 02:04 10/08/23 01:46 2 10/08/23 00:46 2 10/08/23 00:16 2 10/08/23 00:01 2 10/07/23 23:44 2 10/07/23 23:12 Nasal Cannula 2 10/07/23 23:12 Nasal Cannula 2 10/07/23 22:55 10/07/23 20:57 Nasal Cannula 2 10/07/23 20:34 Room Air
[2023-10-08] MEDS: PIPERACILLIN/TAZOBACTAM 4.5 GM/100 ML BAG IV STA (08:27)
[2023-10-08 09:14] LABS: Creatinine Clr Calc Pharmacy 17.4 ml/min; Est GFR (Non-African American) 13.8 ml/min
--- NOTE | 2023-10-08 11:37 | Nephrology Consultation ---
Date of Consultation October 08, 2023 Assessment & Plan (1) SAVANAH (acute kidney injury): at this time patient has severe acute kidney injury and is essentially anuric for almost 12 hours despite IV fluids as well as blood transfusion. she currently has severe hemolytic anemia with hemoglobin as low as 4 on adm ission. SAVANAH can be caused in the setting of severe hemolytic anemia. It is caused by the non-protein heme pigment that is released from hemoglobin and is toxic to the kidney. Despite its toxic properties, heme pigment rarely causes kidney injury in the absence of predisposing conditions, which include volume depletion, metabolic acidosis, and, possibly, mild ischemia. she had lactic acidosis and was lightheaded so there is possibility she was volume depleted to some extent. 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 platelet count is normal. will repeat CBC renal panel and lactic acid again at around 1:00 p.m.. depending on the trend we will know whether there is possibility of requiring renal replacement therapy. however it is very concerning that creatinine went from 1.88 to 3.4 in less than 12 hours time and had no urine. we do need HAIDER C3-C4 Anca immunofixation Naida Hackett. will also do hepatitis-B and hepatitis-C panel. there is also possibility of needing kidney biopsy. For now continue iv fluid but this will have to be reconsidered depending on her urine output. if she remains oliguric /anuric we will also do a Lasix trial. (2) Hemolytic anemia: this is the working diagnosis and currently being worked up in detail with extensive serological test with infectious component as well as autoimmune. plan was to give steroid with IVIG. However given severely oliguric acute kidney injury with rapidly rising creatinine I did not want her to have IVIG today. but she is getting steroid we will reassess tomorrow. Plan case complexity extremely complex and rare presentation. Hematology note reviewed in detail. given complex/ rare presentation extensive time spent even in literature and research review. total time spent 1hr 30 mins. plan was coordinated with hospitalist as well as Hematology and pharmacy. History of Present Illness Reason for Consultation: SAVANAH on background CKD Attending Physician: Mekhi Ly MD History of Present Illness 63/F with pre existing CKD ( recent baseline creat : 1.4---1.7 with rt renal atrophy). She was in ED 09/21/2023 for right rib/flank pain, cough, and SOB,--had CTA -negative for PE but +ve for right pneumonia and sent home on oral cefdinir and azithromycin . Also has COPD diagnosed in 2022, RLS, history of tobacco abuse, nephrolithiasis and HTN who presented to the ED yesterday with abdominal pain. She also had Feeling of Lightheadedness and near Syncope. She saw PCP office on 09/27 and had a repeat chest x-ray that showed resolving pneumonia. Pt also saw pulmonology on 10/01/23 to establish care and no new medications were added. Over the last few days, she notes ongoing cough, that is non-productive, and some lightheadedness. yesterday she started having some upper abdominal pain with some nausea but no vomiting. Didn't notice any blood in the stool. Urine this morning appeared normal but had gross hematuria on straight cath in the ED. She denies prior history of blood transfusion. No prior . No post- menopausal bleeding. workup done was very significant for extremely low hemoglobin of 4 high WBC of 31K as well as acute renal failure with a creatinine of 1.9 which has since then gone up to 3.4 this morning. this worsening is despite IV fluid as well as blood transfusion. she received 2 units of blood. has been seen by Hematology and the assessment is severe hemolytic anemia. she was supposed to have IVIG treatment but now has been held because of anuric acute renal failure. she has not made any urine since the straight cath in the emergency department. bladder scan already done and did not show any urine. I reviewed her outpatient labs and she does not really have much labs in [facility]. creatinine has been 1.4-1.7 with most recently 1.7 as of August 2023. hemoglobin was 11 same day. review of systems------ positive for nausea weakness lightheadedness poor appetite as well as abdominal pain. some shortness of breath noted. 12 systems reviewed in detail physical examination----- middle-aged white female who is not in any overt respiratory distress. awake alert oriented x3 and was able to give detailed account of her medical issues. mucous membrane is moist but pale neck is supple no JVD chest bilateral clear to auscultation CVS S1 and S2 regular no murmur rub or gallop abdomen is soft nontender skin did not show any obvious rash Ext--no edema Allergies Allergy/AdvReac Type Severity Reaction Status Date / Time No Known Allergies Allergy Mild OTHER Unverified 07/12/19 09:42 Home Medications Medication Instructions Recorded Confirmed Type albuterol sulfate 90 mcg/actuation 2 inh inhalation Q6H PRN shortness 01/18/23 10/07/23 Rx aerosol inhaler of breath or wheezing #8.5 grams amlodipine 5 mg tablet (Norvasc) 5 mg PO QAM #30 tabs 01/18/23 10/07/23 Rx fluticasone 250 mcg-salmeterol 50 1 inh inhalation BID #60 ea 01/18/23 10/07/23 Rx mcg/dose blistr powdr for inhalation (Advair Diskus) omeprazole 20 mg capsule,delayed 20 mg PO DAILY 10/07/23 10/07/23 History release Patient History Medical History COPD (chronic obstructive pulmonary disease) Essential hypertension RLS (restless legs syndrome) Pneumonia Surgical History History of tonsillectomy Social History Smoking Status: Current some day smoker Tobacco Type: Cigarettes Second Hand Exposure: Yes; Do You Dip or Chew Tobacco: No; Hx Alcohol Use: No Hx Substance Use: Yes (medical MMJ pt) Last Used Substance: Unknown Preferred Language: Nigerian Communication Ability: Effective [employer] Tester Water Required: No Beliefs That Will Affect Care: None Current Living Situation: Alone Other Information That Helps Us Care for You: No Feels Safe at Home: Yes Safety Concerns: Feels Safe At This Time Assistive Devices: None Results & Data Vital Signs (Past 12 Hours) Vital Signs Temp Pulse Pulse Resp BP BP Pulse Ox 10/08/23 11:02 36.5 C 75 18 151/71 H 94 10/08/23 09:33 78 10/08/23 07:26 36.4 C L 79 18 130/82 98 10/08/23 07:23 10/08/23 05:25 36.7 C 73 20 154/90 H 96 10/08/23 04:25 36.8 C 78 20 155/92 H 96 10/08/23 03:25 36.4 C L 76 20 152/90 H 96 10/08/23 02:57 36.8 C 81 18 155/89 H 96 10/08/23 02:40 36.5 C 82 18 153/93 H 95 10/08/23 02:25 36.4 C L 83 20 145/87 H 95 10/08/23 02:04 36.8 C 79 18 143/83 H 95 10/08/23 01:46 36.8 C 88 20 138/90 93 10/08/23 00:46 36.8 C 83 18 132/83 94 10/08/23 00:16 37.1 C 92 H 20 134/83 93 10/08/23 00:01 36.5 C 87 20 138/82 94 10/07/23 23:44 36.5 C 89 20 131/81 94 O2 Del Method O2 Flow Rate 10/08/23 11:02 Room Air 10/08/23 09:33 10/08/23 07:26 Nasal Cannula 2.0 10/08/23 07:23 Nasal Cannula 2 10/08/23 05:25 2 10/08/23 04:25 2 10/08/23 03:25 2 10/08/23 02:57 2 10/08/23 02:40 2 10/08/23 02:25 2 10/08/23 02:04 10/08/23 01:46 2 10/08/23 00:46 2 10/08/23 00:16 2 10/08/23 00:01 2 10/07/23 23:44 2 Laboratory Results reviewed Diagnostic Findings reviewed
--- NOTE | 2023-10-08 11:51 | Hospitalist Progress Note ---
Date of Service October 08, 2023 Assessment & Plan (1) Anemia: Plan: Acute macrocytic anemia, concern for wAIHA or other hemolytic anemia Leukocytosis This is a 63 y/o female with recent right pneumonia, COPD diagnosed in 2022, RLS, history of tobacco abuse, nephrolithiasis, and HTN who presented to the ED today with abdominal pain. Work-up in the ED revealed an acute drop in pt's Hgb from ~11 to 4 since he was seen in the ED two weeks ago. Pt denies overt evidence of blood loss other than hematuria which started this morning when she developed the abdominal pain. Antibody screen for planned transfusion showed pt with multiple antibodies although pt denies prior transfusion - Admitted to PCU -Hgb down to 4.2, MCV 120, WBC 31.09 -Ferritin >7500, iron 284, LDH 579, T bili 3.5 B12 480 folate 10.99 Peripheral smear pending Blood with antibodies, MANUELA + Blood in process at Secretary -> pt received 2 units of pRBCs overnight - Repeat H&H now and trend Q6 hours - if dropping and no blood available, may need to consider transfer to tertiary facility - Hematology consult - appreciate recommendations (IVIG, steroids being started) - Start 1g Solumedrol, daily , IVIG x 2 days - pt currently anuric and with SAVANAH - discussed w/ nephrology, pharmacy, hematology - hold IVIG today - Multiple labs pending, iron and ferritin markedly elevated, reticulocyte count vital signs stable monitor on tele SCDs now, DVT chemoprophylaxis when stable autoimmune work up, spep in am legionella, strep pneumonia antigen given recent pna and potential source for AIHA empiric coverage with vanco, zosyn while infectious work up pending Hematology consulted - appreciate any further recommendations (2) Abdominal pain: Plan: CT abd/pel negative for clear etiology Continue pantoprazole gtt for now likely iso hemolysis, CT unrevealing and exam not impressive (soft, pain not worsened necessarily with palpation) Work up as above analgesia and resuscitation IV PPI BID CLD Lactic acidosis Anion gap metabolic acidosis GAP 18, Lactate 10.8 on admission Improving, trend to resolution SAVANAH on likely ckd Cr1.88, atrophic right kidney noted iso hemolysis, now s/p contrast exposure Avoid further nephrotoxic agents Current Cr 3.4 Nephrology consulted Holding IVIG for now, as pt seems anuric now - appreciate further recommendations Nephrolithiasis 2mm stone in right atrophic kidney no noted on ct Hyperglycemia denies diabetes, elevated glucose, A1C 4.2% ( likely falsely low iso hemolysis) SSI and BG checks (3) COPD (chronic obstructive pulmonary disease): Plan: Chronic, stable Continue outpatient regimen Baseline pulmonary function testing along with nocturnal oximetry on room air and 6 minute walk test was requested. Carter Lawler 09/30 Tobacco use 20 pack year (4) Essential hypertension: Plan: Chronic, stable Hold amlodipine for now and monitor BP due to concern for ongoing blood loss (5) Elevated troponin: Plan: Will trend, likely demand from acute anemia Plan DVT Prophylaxsis: SCDs Code Status: Full code Dispo: PCU Admission and Anticipated Discharge Date Admission Date: October 07, 2023 Subjective Pt seen in follow up of anemia, abd. pain, hematuria, SAVANAH Admitted w/ abd. apin and anemia. Received 2 units of pRBCs overnight Received steroid and IVIG yesterday on admission Also had IV contrast with her CT yesterday Currently laying in bed in [facility], says abd. pain is much improved now No fever, chills, chest pain or shortness of breath Per RN, pt had no urine output since midnight, at midnight it was bloody - pt is not quite aware Cr elevated Discussed w/ nephrology, pharmacy and hematology - will hold IVIG today, as pt anuric w/ SAVANAH Review of Systems Review of Systems: All systems reviewed & are unremarkable except as noted in Subjective Physical Exam Physical Exam: GENERAL APPEARANCE: WD/WN F in NAD HEENT: NC, AT. MMM. EOMI NECK: Supple HEART: Normal rate and regular rhythm, normal S1/S1, no m/r/g LUNGS: CTAB, moving air well. No crackles or wheezes are heard. ABDOMEN: Soft, minimal tenderness in epigastric area, + bowel sounds BACK: No CVAT EXTREMITIES: No LE edema, moves extremities NEUROLOGICAL: Awake, alert and oriented, speech fluent, able to answers simple questions appropriately, moving all 4 extremities. Skin: Warm and dry without any rash. Results & Data Results & Data Vital Signs (Past 12 Hours) Vital Signs Temp Pulse Pulse Resp BP BP Pulse Ox 10/08/23 11:02 36.5 C 75 18 151/71 H 94 10/08/23 09:33 78 10/08/23 07:26 36.4 C L 79 18 130/82 98 10/08/23 07:23 10/08/23 05:25 36.7 C 73 20 154/90 H 96 10/08/23 04:25 36.8 C 78 20 155/92 H 96 10/08/23 03:25 36.4 C L 76 20 152/90 H 96 10/08/23 02:57 36.8 C 81 18 155/89 H 96 10/08/23 02:40 36.5 C 82 18 153/93 H 95 10/08/23 02:25 36.4 C L 83 20 145/87 H 95 10/08/23 02:04 36.8 C 79 18 143/83 H 95 10/08/23 01:46 36.8 C 88 20 138/90 93 10/08/23 00:46 36.8 C 83 18 132/83 94 10/08/23 00:16 37.1 C 92 H 20 134/83 93 10/08/23 00:01 36.5 C 87 20 138/82 94 10/07/23 23:44 36.5 C 89 20 131/81 94 O2 Del Method O2 Flow Rate 10/08/23 11:02 Room Air 10/08/23 09:33 10/08/23 07:26 Nasal Cannula 2.0 10/08/23 07:23 Nasal Cannula 2 10/08/23 05:25 2 10/08/23 04:25 2 10/08/23 03:25 2 10/08/23 02:57 2 10/08/23 02:40 2 10/08/23 02:25 2 10/08/23 02:04 10/08/23 01:46 2 10/08/23 00:46 2 10/08/23 00:16 2 10/08/23 00:01 2 10/07/23 23:44 2 Laboratory Results 10/08/23 10/08/23 10/08/23 Range/Units Unknown 10:59 07:08 Hgb (12.0-16.0) g/dl Hct (37.0-47.0) % Blood Smear Review [facility] Panel (Flow) Creatinine (0.6-1.2) mg/dl Est Cr Clr Drug Dosing ml/min Est GFR ( Amer) ml/min Est GFR (Non-Af Amer) ml/min POC Glucose 212 H 184 H (70-99) mg/dl Estimat Average Glucose mg/dl Hemoglobin A1c (4.5-5.6) % TIBC Transferrin % Sat Ferritin (8-388) ng/ml Troponin I High Sens (0-14) pg/ml Total Protein (PEP) Albumin (PEP) Rbgzv-8-Wxpfnkjam Uqglw-8-Fbmhsghzf Msph-2-Swtvhnbn Oefz-2-Yzrbbdiy Gamma Globulins Monoclonal Peak 3 Ser Monoclonl Protein Ser Monoclonal Prot 2 PEP Interpretation Vitamin B12 (180-914) pg/ml Folate (>5.38) ng/ml Nasal Screen MRSA (PCR) (Negative) Stl C. diff Tox B Gene Negative Cdiff Gene (Neg) HAIDER Screen SS-A/Ro Antibody SS-B/La Antibody Sm (Pena) Antibody [employer]ER Antibody Scl-70 Scleroderma Ab Anti-ds DNA (Crithidia) Chromatin Antibody Anti-Centromere Ab Thyroid Antimicrosomal Anti-Cardiolipin IgG Ab Anti-Cardiolipin IgA Ab Anti-Cardiolipin IgM Ab Complement C3 Complement C4 Urine Legionella Ag Blood Type Antibody Screen Antibody Identification Antibody ID Referred Antibody ID Comment Direct Antiglob Test (Negative) MANUELA (IgG-AHG) (Negative) MANUELA, Polyspecific (Negative) MANUELA C3b, C3d 5 Min (Negative) Crossmatch 10/08/23 10/08/23 10/07/23 Range/Units 07:03 06:45 21:17 Hgb 8.0 L (12.0-16.0) g/dl Hct 23.5 L (37.0-47.0) % Blood Smear Review [facility] Panel (Flow) Pending Creatinine 3.40 H D (0.6-1.2) mg/dl Est Cr Clr Drug Dosing 17.4 ml/min Est GFR ( Amer) 16.0 ml/min Est GFR (Non-Af Amer) 13.8 ml/min POC Glucose 209 H (70-99) mg/dl Estimat Average Glucose 74 mg/dl Hemoglobin A1c 4.2 L (4.5-5.6) % TIBC Transferrin % Sat Ferritin (8-388) ng/ml Troponin I High Sens (0-14) pg/ml Total Protein (PEP) Pending Albumin (PEP) Pending Hbivo-8-Nwacimmdi Pending Dldlw-9-Hdnppobng Pending Sesr-8-Ttrkrrrk Pending Xlur-5-Covvjkux Pending Gamma Globulins Pending Monoclonal Peak 3 Pending Ser Monoclonl Protein Pending Ser Monoclonal Prot 2 Pending PEP Interpretation Pending Vitamin B12 (180-914) pg/ml Folate (>5.38) ng/ml Nasal Screen MRSA (PCR) (Negative) Stl C. diff Tox B Gene (Neg) HAIDER Screen Pending SS-A/Ro Antibody Pending SS-B/La Antibody Pending Sm (Pena) Antibody Pending [employer] Antibody Pending Scl-70 Scleroderma Ab Pending Anti-ds DNA (Crithidia) Pending Chromatin Antibody Pending Anti-Centromere Ab Pending Thyroid Antimicrosomal Pending Anti-Cardiolipin IgG Ab Pending Anti-Cardiolipin IgA Ab Pending Anti-Cardiolipin IgM Ab Pending Complement C3 Pending Complement C4 Pending Urine Legionella Ag Blood Type Antibody Screen Antibody Identification Antibody ID Referred Antibody ID Comment Direct Antiglob Test (Negative) MANUELA (IgG-AHG) (Negative) MANUELA, Polyspecific (Negative) MANUELA C3b, C3d 5 Min (Negative) Crossmatch 10/07/23 10/07/23 10/07/23 Range/Units 16:22 16:21 11:55 Hgb 5.9 L* (12.0-16.0) g/dl Hct 17.2 L* (37.0-47.0) % Blood Smear Review [facility] Panel (Flow) Creatinine (0.6-1.2) mg/dl Est Cr Clr Drug Dosing ml/min Est GFR ( Amer) ml/min Est GFR (Non-Af Amer) ml/min POC Glucose 162 H (70-99) mg/dl Estimat Average Glucose mg/dl Hemoglobin A1c (4.5-5.6) % TIBC Transferrin % Sat Ferritin (8-388) ng/ml Troponin I High Sens (0-14) pg/ml Total Protein (PEP) Albumin (PEP) Qbcot-4-Wqjxmhiuy Ejlyf-4-Edoszmmhg Cgal-5-Sqfpzhpg Nddp-5-Dbpogyjd Gamma Globulins Monoclonal Peak 3 Ser Monoclonl Protein Ser Monoclonal Prot 2 PEP Interpretation Vitamin B12 (180-914) pg/ml Folate (>5.38) ng/ml Nasal Screen MRSA (PCR) (Negative) Stl C. diff Tox B Gene (Neg) HAIDER Screen SS-A/Ro Antibody SS-B/La Antibody Sm (Pena) Antibody [employer] F[employer]ER Antibody Scl-70 Scleroderma Ab Anti-ds DNA (Crithidia) Chromatin Antibody Anti-Centromere Ab Thyroid Antimicrosomal Anti-Cardiolipin IgG Ab Anti-Cardiolipin IgA Ab Anti-Cardiolipin IgM Ab Complement C3 Complement C4 Urine Legionella Ag Blood Type Antibody Screen Antibody Identification Antibody ID Referred Pending Antibody ID Comment Direct Antiglob Test (Negative) MANUELA (IgG-AHG) (Negative) MANUELA, Polyspecific (Negative) MANUELA C3b, C3d 5 Min (Negative) Crossmatch 10/07/23 10/07/23 10/07/23 Range/Units 11:41 11:35 11:07 Hgb 4.0 L* (12.0-16.0) g/dl Hct 12.4 L* (37.0-47.0) % Blood Smear Review [facility] Panel (Flow) Creatinine (0.6-1.2) mg/dl Est Cr Clr Drug Dosing ml/min Est GFR ( Amer) ml/min Est GFR (Non-Af Amer) ml/min POC Glucose (70-99) mg/dl Estimat Average Glucose mg/dl Hemoglobin A1c (4.5-5.6) % TIBC Transferrin % Sat Ferritin (8-388) ng/ml Troponin I High Sens 29.8 H D (0-14) pg/ml Total Protein (PEP) Albumin (PEP) Tfizr-4-Oveuhuava Ppdrh-8-Jpcakzeas Iqzl-6-Jwlluooz Hraq-4-Nkjjxkjz Gamma Globulins Monoclonal Peak 3 Ser Monoclonl Protein Ser Monoclonal Prot 2 PEP Interpretation Vitamin B12 (180-914) pg/ml Folate (>5.38) ng/ml Nasal Screen MRSA (PCR) Negative (Negative) Stl C. diff Tox B Gene (Neg) HAIDER Screen SS-A/Ro Antibody SS-B/La Antibody Sm (Pena) Antibody [employer] F[employer]ER Antibody Scl-70 Scleroderma Ab Anti-ds DNA (Crithidia) Chromatin Antibody Anti-Centromere Ab Thyroid Antimicrosomal Anti-Cardiolipin IgG Ab Anti-Cardiolipin IgA Ab Anti-Cardiolipin IgM Ab Complement C3 Complement C4 Urine Legionella Ag Pending Blood Type Antibody Screen Antibody Identification Antibody ID Referred Antibody ID Comment Direct Antiglob Test (Negative) MANUELA (IgG-AHG) (Negative) MANUELA, Polyspecific (Negative) MANUELA C3b, C3d 5 Min (Negative) Crossmatch 10/07/23 10/07/23 Range/Units 09:05 09:01 Hgb (12.0-16.0) g/dl Hct (37.0-47.0) % Blood Smear Review [facility] Panel (Flow) Creatinine (0.6-1.2) mg/dl Est Cr Clr Drug Dosing ml/min Est GFR ( Amer) ml/min Est GFR (Non-Af Amer) ml/min POC Glucose (70-99) mg/dl Estimat Average Glucose mg/dl Hemoglobin A1c (4.5-5.6) % TIBC TNP Transferrin % Sat TNP Ferritin > 7500.0 H (8-388) ng/ml Troponin I High Sens (0-14) pg/ml Total Protein (PEP) Albumin (PEP) Idcss-1-Fntrvkayd Plkfy-5-Jazrwbiou Ztlt-7-Wxucqpdd Ajpr-0-Bsksgvni Gamma Globulins Monoclonal Peak 3 Ser Monoclonl Protein Ser Monoclonal Prot 2 PEP Interpretation Vitamin B12 480 (180-914) pg/ml Folate 10.99 (>5.38) ng/ml Nasal Screen MRSA (PCR) (Negative) Stl C. diff Tox B Gene (Neg) HAIDER Screen SS-A/Ro Antibody SS-B/La Antibody Sm (Pena) Antibody T[employer] F[employer]ER Antibody Scl-70 Scleroderma Ab Anti-ds DNA (Crithidia) Chromatin Antibody Anti-Centromere Ab Thyroid Antimicrosomal Anti-Cardiolipin IgG Ab Anti-Cardiolipin IgA Ab Anti-Cardiolipin IgM Ab Complement C3 Complement C4 Urine Legionella Ag Blood Type A Positive Antibody Screen POSITIVE A Antibody Identification Warm Auto Antibody Antibody ID Referred Antibody ID Comment Cancelled Direct Antiglob Test Positive A (Negative) MANUELA (IgG-AHG) 3+ A (Negative) MANUELA, Polyspecific 3+ A (Negative) MANUELA C3b, C3d 5 Min 2+ A (Negative) Crossmatch See Detail (1) Anemia Anemia type: unspecified type Qualified Code(s): D64.9 - Anemia, unspecified (2) Abdominal pain Abdominal location: upper abdomen, unspecified Qualified Code(s): R10.10 - Upper abdominal pain, unspecified
[2023-10-08] MEDS ORDERED: PIPERACILLIN/TAZOBACTAM 4.5 GM in DEXTROSE 5% MINI-B 100 ML IV SCH (14:00)
[2023-10-08 14:50] LABS: Albumin Level 3.1 gm/dl (3.4-5.0); BUN Creatinine Ratio 12.9 (10-20); Calcium 7.4 mg/dl (8.6-10.3); Creatinine Clr Calc Pharmacy 14.7 ml/min; Est GFR (African American) 13.1 ml/min; Est GFR (Non-African American) 11.3 ml/min; Phosphorus 4.9 mg/dl (2.5-4.9); Potassium 4.8 mmol/L (3.5-5.1)
[2023-10-08] MEDS ORDERED: Octagam 10% IVIG 10 gram bottle IV SCH (15:00)
[2023-10-08] MEDS ORDERED: ALBUTEROL HFA 8 GM INHALER INH PRN (15:05)
[2023-10-08] MEDS: LIDOCAINE 2% JELLY 5 ML TUBE EXT STA (15:39)
[2023-10-08] MEDS: FUROSEMIDE 40 MG/4 ML VIAL IV ONE (15:52)
[2023-10-08] MEDS ORDERED: Octagam 10% IVIG 20 gram bottle IV SCH (16:00)
[2023-10-08 16:18] LABS: Acanthocytes 1+; Anisocytosis Present; Basophils # (auto) 0.04 K/uL (0.00-0.20); Basophils % (auto) 0.2 %; Echinocytes 1+; Eosinophils # (auto) 0.01 K/uL (0.00-0.50); Hematocrit (blood only) 22.9 % (37.0-47.0); Hemoglobin 7.7 g/dl (12.0-16.0); Immature Granulocytes # (auto) 0.52 K/uL (0.01-0.20); Lymphocytes # (auto) 3.44 K/uL (1.20-3.40); Lymphocytes % (auto) 13.5 %; Mean Corpuscular Hemoglobin 33.6 pg (25.0-34.0); Mean Corpuscular Hgb Conc 33.6 g/dL (32.0-36.0); Mean Platelet Volume 12.8 fL (9.4-12.4); Monocytes # (auto) 0.75 K/uL (0.11-0.59); Monocytes % (auto) 2.9 %; Neutrophils # (auto) 20.67 K/uL (1.40-6.50); Neutrophils % (auto) 81.4 %; Nucleated RBC # (auto) 0.21 K/uL (0.00-0.12); Nucleated RBC % (auto) 0.8 %; Platelet Count 36 K/uL (130-400); Platelet Estimate Decreased (Normal); Polychromasia 2+; RDW Coefficient of Variation 19.2 % (11.5-14.5); RDW Standard Deviation 66.1 fL (36.4-46.3); Red Blood Count 2.29 M/uL (4.20-5.40); White Blood Count 25.43 K/ul (4.8-10.8)
[2023-10-08 16:30] LABS: Potassium 4.9 mmol/L (3.5-5.1)
[2023-10-08 16:31] LABS: Calcium 7.3 mg/dl (8.6-10.3)
[2023-10-08] MEDS: PIPERACILLIN/TAZOBACTAM 4.5 GM in DEXTROSE 5% MINI-B 100 ML IV SCH (16:32)
[2023-10-08] MEDS: FLUTICASONE/VILANTEROL 100/25MCG 14 PUFFS/INHALER INH SCH (16:32)
[2023-10-08 16:35] LABS: BUN Creatinine Ratio 12.9 (10-20); Creatinine Clr Calc Pharmacy 14.3 ml/min; Est GFR (African American) 12.7 ml/min
[2023-10-08 19:32] LABS: INR 1.2 (0.9-1.1)
[2023-10-08 23:23] LABS: Hematocrit (blood only) 23.4 % (37.0-47.0); Mean Corpuscular Hemoglobin 33.3 pg (25.0-34.0); Mean Corpuscular Hgb Conc 34.2 g/dL (32.0-36.0); Mean Corpuscular Volume 97.5 fL (80.0-100.0); Mean Platelet Volume 11.8 fL (9.4-12.4); Nucleated RBC # (auto) 0.18 K/uL (0.00-0.12); Nucleated RBC % (auto) 0.7 %; Platelet Count 36 K/uL (130-400); RDW Coefficient of Variation 19.3 % (11.5-14.5); RDW Standard Deviation 65.6 fL (36.4-46.3); White Blood Count 26.83 K/ul (4.8-10.8)
[2023-10-08 23:44] LABS: Anisocytosis Present; Basophils # (auto) 0.05 K/uL (0.00-0.20); Basophils % (auto) 0.2 %; Echinocytes 1+; Eosinophils # (auto) 0.01 K/uL (0.00-0.50); Immature Granulocytes % (auto) 1.9 %; Lymphocytes # (auto) 3.53 K/uL (1.20-3.40); Lymphocytes % (auto) 13.2 %; Monocytes # (auto) 0.57 K/uL (0.11-0.59); Monocytes % (auto) 2.1 %; Neutrophils # (auto) 22.17 K/uL (1.40-6.50); Neutrophils % (auto) 82.6 %; Polychromasia 1+
[2023-10-09 00:09] LABS: Potassium 5.2 mmol/L (3.5-5.1)
[2023-10-09 00:13] LABS: Calcium 7.4 mg/dl (8.6-10.3); Est GFR (African American) 11.3 ml/min; Est GFR (Non-African American) 9.8 ml/min; Magnesium 1.6 mg/dl (1.7-2.4); Phosphorus 5.4 mg/dl (2.5-4.9)
--- NOTE | 2023-10-09 08:27 | Discharge Summary ---
Date of Service October 08, 2023 Admission HPI Per Admitting Provider This is a 63 y/o female with recent right pneumonia, COPD diagnosed in 2022, RLS, history of tobacco abuse, nephrolithiasis, and HTN who presented to the ED today with abdominal pain. Pt was seen in the ED at the end of August with right rib/flank pain, cough, and SOB, and was diagnosed with RLL community-acquired pneumonia. She was placed on cefdinir and azithromyin and discharged to f/u with PCP. She saw PCP office on 09/27 and had a repeat chest x-ray that showed resolving pneumonia. Pt also saw pulmonology on 10/01/23 to establish care and no new medications were added. Pt was diagnosed with COPD last year after exposure to [employer] fires and associated flare-up of respiratory symptoms. Pt reports that she has not been smoking since being diagnosed with pneumonia and would like to quit smoking permanently. Over the last few days, she notes a recurrent cough, that is non-productive, and some lightheadedness. Today she started with upper abdominal pain that has been waxing and waning in intensity. May improve with some positions. She reports that she went to the grocery store and noticed that she was lightheaded so she came home and was still lightheaded so she lay down to watch TV, which was when the pain started. Not eating much due to the pain. Has had nausea but no vomiting. Had a bowel movement this morning - stools have been softer than normal the past couple weeks. Describes as diarrhea "a c ouple times" per day. Didn't notice any blood in the stool. Urine this morning appeared normal but now with gross hematuria on straight cath in the ED. Feeling cold and hot but no fevers. She denies prior history of blood transfusion. No prior . No post-menopausal bleeding. She notes that her mother from something related to post-menopausal bleeding but pt unsure what the final diagnosis was as her mother didn't go to the doctor until her symptoms were advanced. Admission Exam Per Admitting Provider GENERAL APPEARANCE: AxOx4, mildly uncomfortable. HEENT: NC, AT. MMM. EOMI, clear conjunctiva, oropharynx clear. NECK: Supple without lymphadenopathy. No stiffness or restricted ROM. HEART: Normal rate and regular rhythm, normal S1/S1, no m/r/g LUNGS: CTAB, moving air well. No crackles or wheezes are heard. ABDOMEN: Soft,, exam not consistent with pain reported, BACK: No CVAT, no obvious deformity. EXTREMITIES: Without cyanosis, clubbing or edema. NEUROLOGICAL: Grossly nonfocal. Alert and oriented, moving all 4 extremities. CN not formally tested but appear grossly intact Skin: Warm and dry without any rash. 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 MMM. EOMI NECK: Supple HEART: Normal rate and regular rhythm, normal S1/S1, no m/r/g LUNGS: CTAB, moving air well. No crackles or wheezes are heard. ABDOMEN: Soft, minimal tenderness in epigastric area, + bowel sounds BACK: No CVAT EXTREMITIES: No LE edema, moves extremities NEUROLOGICAL: Awake, alert and oriented, speech fluent, able to answers simple questions appropriately, moving all 4 extremities. Skin: Warm and dry without any rash. Discharge Data Allergies Allergy/AdvReac Type Severity Reaction Status Date / Time No Known Allergies Allergy Mild OTHER Unverified 07/12/19 09:42 Consultations 10/07/23 11:21 ED Decision to Admit Stat 10/08/23 08:00 Consult Hematology Routine 10/08/23 09:53 Consult Nephrology Routine 10/08/23 16:15 Burn CD for patient Stat Ordered Studies 10/07/23 09:16 CT abd pelvis IV con only Stat FINDINGS: Lower chest: Airspace opacity is in the right lower lobe, somewhat improved from prior exam. Liver: Unremarkable. No focal lesions are seen. Gallbladder and biliary tree: No calcified gallstones. Normal caliber wall. No intra- or extrahepatic biliary ductal dilation. Pancreas: Unremarkable, no focal lesions. Spleen: Unremarkable. Adrenals: Nodular thickening of the left adrenal gland is seen. Kidneys and ureters: Right kidney is atrophic. Wedge-shaped hypodensities in the left kidney also compatible with focal scarring. Bladder: Limited evaluation due to underdistention. Reproductive organs: Unremarkable. Bowel: Diverticulosis is seen without diverticulitis. The appendix is normal. Lymph nodes Retroperitoneal: Subcentimeter lymph nodes are noted. Pelvic: Unremarkable. Mesenteric: Unremarkable. Peritoneum: Normal. Vessels: Unremarkable. Abdominal wall: Unremarkable. Bones: Degenerative changes in the visualized spine. IMPRESSION: 1. No acute intra-abdominal abnormalities. 2. Partial visualization of right lower lobe airspace opacities compatible with pneumonia. 3. Atrophic right kidney and cortical scarring in the left kidney. Hospital Course (1) Anemia: Acute macrocytic anemia, concern for wAIHA or other hemolytic anemia Leukocytosis This is a 63 y/o female with recent right pneumonia, COPD diagnosed in 2022, RLS, history of tobacco abuse, nephrolithiasis, and HTN who presented to the ED today with abdominal pain. Work-up in the ED revealed an acute drop in pt's Hgb from ~11 to 4 since he was seen in the ED two weeks ago. Pt denies overt evidence of blood loss other than hematuria which started this morning when she developed the abdominal pain. Antibody screen for planned transfusion showed pt with multiple antibodies although pt denies prior transfusion - Admitted to PCU -Hgb down to 4.2, MCV 120, WBC 31.09 -Ferritin >7500, iron 284, LDH 579, T bili 3.5 B12 480 folate 10.99 Peripheral smear pending Blood with antibodies, MANUELA + Blood in process at [place] -> pt received 2 units of pRBCs overnight - Repeat H&H now and trend Q6 hours - if dropping and no blood available, may need to consider transfer to tertiary facility - Hematology consult - appreciate recommendations (IVIG, steroids being started) - Start 1g Solumedrol, daily , IVIG x 2 days - pt currently anuric and with SAVANAH - discussed w/ nephrology, pharmacy, hematology - hold IVIG today - Multiple labs pending, iron and ferritin markedly elevated, reticulocyte count vital signs stable monitor on tele SCDs now, DVT chemoprophylaxis when stable autoimmune work up, spep in am legionella, strep pneumonia antigen given recent pna and potential source for AIHA empiric coverage with vanco, zosyn while infectious work up pending Hematology consulted - appreciate any further recommendations Update: Patient presented with abdominal pain and severe anemia with hemoglobin of 4. + Hematuria. She was started on IVIG and steroid. She received 2 units of pRBCs. Became anuric overnight and now with rapidly worsening SAVANAH. In addition , repeat CBC showing drop in platelets to 36, 000, cr worsening to 4. Hematology and Nephrology consulted - recommend transfer to tertiary center- may need renal biopsy and/or Plasma exchange--neither is available in [facility]. Even the serology tests turnaround time is too slow. Discussed with [facility] D[facility] - pt will be transferred there for further evaluation and care. (2) Abdominal pain: CT abd/pel negative for clear etiology Continue pantoprazole gtt for now likely iso hemolysis, CT unrevealing and exam not impressive (soft, pain not worsened necessarily with palpation) Work up as above analgesia and resuscitation IV PPI BID CLD Lactic acidosis Anion gap metabolic acidosis GAP 18, Lactate 10.8 on admission Improving, trend to resolution SAVANAH on likely ckd Cr1.88, atrophic right kidney noted iso hemolysis, now s/p contrast exposure Avoid further nephrotoxic agents Current Cr 3.4 Nephrology consulted Holding IVIG for now, as pt seems anuric now - appreciate further recommendations Nephrolithiasis 2mm stone in right atrophic kidney no noted on ct Hyperglycemia denies diabetes, elevated glucose, A1C 4.2% ( likely falsely low iso hemolysis) SSI and BG checks (3) COPD (chronic obstructive pulmonary disease): Chronic, stable Continue outpatient regimen Baseline pulmonary function testing along with nocturnal oximetry on room air and 6 minute walk test was requested. 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 + Hematuria. She was started on IVIG and steroid. She received 2 units of pRBCs. Became anuric overnight and now with rapidly worsening SAVANAH. Hematology and Nephrology consulted - recommend transfer to tertiary center- may need renal biopsy and/or even Plasma exchange--neither is available in [facility]. Even the serology tests turnaround time is too slow. Discussed with [facility] - pt will be transferred there for further evaluation and care. Pending Studies at Discharge: Yes Studies:: anemia work-up Stand-Alone Forms: My [facility] Skilled Items Patient informed of condition?: Yes DNR: No Discharge Level of Care: Other Communicable Disease: No Discharge Prognosis: Other Lines: Peripheral IV Urinary Catheter: Yes Medications and DC Order Prescriptions: Continued amlodipine [Norvasc] 5 mg Tablet 5 mg PO QAM Qty: 30 0RF albuterol sulfate 90 mcg/actuation HFA aerosol inhaler 2 inh inhalation Q6H PRN (Reason: shortness of breath or wheezing) Qty: 8.5 0RF fluticasone propion-salmeterol [Advair Diskus] 250-50 mcg/dose blister with device 1 inh inhalation BID Qty: 60 0RF omeprazole 20 mg capsule,delayed release(DR/EC) 20 mg PO DAILY Discharge Orders: Discharge Order (Routine); Ordered 10/08/23 Ordered By: Mekhi Ly Admission Data Admit Date/Time: 10/07/23 11:22 Attending Provider: Mekhi Ly Admit Provider: Coreen Marques Primary Care Provider: PCP,NO Other Providers: Coreen Marques; Carine Medina; Juan Miguel King
== END 2023-10-09 03:40 | disposition short-term general hospital (02) | DRG 809 ==
LOC: ED 08:40 → SUATTDRO 11:22 → 2S 11:22